=== PATIENT | female | born 1945 | race Caucasian/White ===

== ENCOUNTER 2017-07-03 08:55 | Inpatient (IN) | payer OTHER, MEDICARE ==
[2017-07-03] VITALS (7 sets, daily range): BP systolic 107–165; BP diastolic 60–85; PULSE 66–82; RESP 16–18; TEMP 98.2–99; O2SAT 96–100
[~2017-07-03] VITALS: Ht 144.8 cm; Wt 54.0 kg
[2017-07-03] MEDS ORDERED: BRIM0.2S4 EACH EYE (11:00)
[2017-07-03] MEDS ORDERED: MORPHINE SULFATE 2 MG/ML INJ IV PUSH ONE ×2 (11:00→13:00)
[2017-07-03] MEDS ORDERED: LEVE500T8 PO (11:00)
[2017-07-03] MEDS ORDERED: ATEN25TA PO (11:00)
[2017-07-03] MEDS ORDERED: AMLO10TA2 PO (11:00)
[2017-07-03] MEDS ORDERED: KETOROLAC TROMETHAMINE 30 MG/ML (IVP) VIAL IV PUSH ONE (11:00)
[2017-07-03] MEDS ORDERED: TEMA15CA PO (11:00)
[2017-07-03] MEDS ORDERED: MECL-62 PO (11:00)
[2017-07-03] MEDS ORDERED: RANI1TAB5 PO (11:00)
[2017-07-03] MEDS ORDERED: VENL150C39 PO (11:00)
[2017-07-03 11:22] LABS: AUTOMATED NEUTROPHIL # 7.5 TH/MM3 (1.8-7.7); BASOPHIL % 0.2 % (0.0-2.0); EOSINOPHIL % 0.1 % (0.0-4.0); HEMATOCRIT 39.8 % (35.0-46.0); HEMO FLAGS DIFF FINAL; LYMPH % 17.9 % (9.0-44.0); LYMPHOCYTE # 1.9 TH/MM3 (1.0-4.8); MEAN CELL VOLUME 87.6 FL (80.0-100.0); MEAN CORPUSCULAR HEMOGLOBIN 28.7 PG (27.0-34.0); MEAN CORPUSCULAR HGB CONC 32.7 % (32.0-36.0); MONO % 12.1 % (0.0-8.0); NEUT % 69.7 % (16.0-70.0); PLATELET COUNT 233 TH/MM3 (150-450); RED BLOOD COUNT 4.55 MIL/MM3 (4.00-5.30); RED CELL DISTRIBUTION WIDTH 13.6 % (11.6-17.2); WHITE BLOOD COUNT 10.7 TH/MM3 (4.0-11.0)
[2017-07-03 11:26] LABS: APTT (PATIENT) 27.6 SEC (24.3-30.1); PROTHROMBIN TIME - PATIENT 10.7 SEC (9.8-11.6)
[2017-07-03 11:37] LABS: ALT (GPT) 16 U/L (10-53); ANION GAP 9 MEQ/L (5-15); AST (GOT) 14 U/L (15-37); BICARBONATE 22.8 MEQ/L (21.0-32.0); BLOOD UREA NITROGEN 10 MG/DL (7-18); CHLORIDE 106 MEQ/L (98-107); GLOMERULAR FILTRATION RATE 82 ML/MIN (>89); POTASSIUM 3.4 MEQ/L (3.5-5.1); SODIUM (NA) 138 MEQ/L (136-145)
[2017-07-03 11:40] LABS: ALKALINE PHOSPHATASE 106 U/L (45-117); TOTAL BILIRUBIN ADULT 0.5 MG/DL (0.2-1.0)
--- NOTE | 2017-07-03 11:48 | RADRPT ---
EXAM DATE/TIME: 07/03/2017 11:26 [place] COMPARISON: No previous studies available for comparison. EXTERNAL COMPARISON : [facility], US LEG, LEFT VENOUS DOPPLER June 13, 2017. INDICATIONS : Left leg pain. MEDICAL HISTORY : Hypercholesterolemia. Hypertension. Glaucoma. Seizures. Arthritis. Anemia. Vertigo. SURGICAL HISTORY : Left lung lobectomy. ENCOUNTER: Subsequent ACUITY: 1 month PAIN SCORE: 3/10 LOCATION: Left leg. TECHNIQUE: Venous ultrasound of the leg was performed from the inguinal ligament to the proximal calf. Real-randy e, color Doppler and spectral tracing, compression and augmentation techniques were used. FINDINGS: There is normal compressibility of the deep venous system from the inguinal region to the proximal ca lf. No echogenic clot is seen in the lumen of the common femoral, femoral, popliteal, and posterior tibial veins. There is a normal response of the venous system to proximal and distal augmentation an d respiration. CONCLUSION: No DVT in left leg. Hakeem Robles MD on July 03, 2017 at 11:44 Board Certified Radiologist. This report was verified electronically.
--- NOTE | 2017-07-03 12:22 | RADRPT ---
EXAM DATE/TIME: 07/03/2017 12:16 [place] COMPARISON: No previous studies available for comparison. INDICATIONS : Left knee pain and swelling. Patient woke up and was unable to walk. No prior trauma. MEDICAL HISTORY : Arthritis. Hypercholesterolemia. Hypertension. Anemia. Seizures. SURGICAL HISTORY : Total knee replacement, left. Total knee replacement, right. Left lung lobectomy. ENCOUNTER: Initial ACUITY: 1 day PAIN SCORE: 10/10 LOCATION: Left knee. FINDINGS: Status post total knee arthroplasty. Prosthesis well seated. Modest joint effusion is evident. Fractu re is not appreciated. CONCLUSION: Joint effusion negative for fracture. Jesus Donovan MD FACR on July 03, 2017 at 12:20 Board Certified Radiologist. This report was verified electronically.
[2017-07-03] MEDS ORDERED: LIDOCAINE HCL 1% 50 ML VIAL INFIL ONE (13:00)
[2017-07-03 15:28] LABS: WBC, SYNOVIAL FLUID 41500 /MM3 (0-200)
[2017-07-03] MEDS ORDERED: cefTRIAXone INJ 2,000 MG in SODIUM CHLORIDE 0.9% INJ 100 ML IV ONE (17:15)
[2017-07-03] MEDS ORDERED: VANCOMYCIN INJ 800 MG in SODIUM CHLOR 0.9% 250 ML INJ 250 ML IV SCH (17:15)
--- NOTE | 2017-07-03 17:17 | PD ---
HPI Chief Complaint: Medical Clearance Time Seen by Provider: 10:53 Travel History International Travel<30 days: No Contact w/Intl Traveler<30days: No Traveled to known affect area: No History of Present Illness HPI Patient is a 71 year old female who comes in complaining of left knee pain. She has history of knee replacement and arthritis in that knee, but she says this sever pain started last night. She says it has felt warm and she is unable to deep her knee. She denies fever or chills. She denies injury to the knee. She has not taken any pain medicine. PFSH Past Medical History Anemia: Yes Arthritis: Yes (and oa) Depression: Yes High Cholesterol: Yes Hypertension: Yes Medical other: Yes (vertigo) Seizures: Yes Influenza Vaccination: Yes Past Surgical History Cholecystectomy: Yes Hysterectomy: Yes Other Surgery: Yes (piece of L Lower Lung lobe removed) Social History Alcohol Use: No Tobacco Use: No Substance Use: No Allergies-Medications (Allergen,Severity, Reaction): Coded Allergies: aspirin (Verified Allergy, Intermediate, burning stomach, 07/03/17) Reported Meds & Prescriptions Reported Meds & Active Scripts Active Reported Brimonidine Opth Drops (Brimonidine Tartrate) 0.2% Soln 1 Drop EACH EYE BID Temazepam 15 Mg Cap 15 Mg PO HS PRN Amlodipine (Amlodipine Besylate) 10 Mg Tab 10 Mg PO DAILY Venlafaxine ER 24 HR (Venlafaxine HCl) 150 Mg Cap 150 Mg PO DAILY Meclizine (Meclizine HCl) 25 Mg Tab 25 Mg PO DIRECTED PRN Atenolol 25 Mg Tab 25 Mg PO DAILY Levetiracetam 500 Mg Tab 500 Mg PO BID Ranitidine 75 (Ranitidine HCl) 75 Mg Tab 150 Mg PO BID Take 30 to 60 minutes before eating food or drinking beverages that cause heartburn. Review of Systems Except as stated in HPI: all other systems reviewed are Neg General / Constitutional: No: Fever, Chills HENT: No: Headaches, Lightheadedness Cardiovascular: No: Chest Pain or Discomfort Respiratory: No: Shortness of Breath Gastrointestinal: No: Nausea, Vomiting Musculoskeletal: Positive: Limited ROM, Pain Skin: No Rash, No Change in Pigmentation Neurologic: No: Weakness, Dizziness Physical Exam Narrative GENERAL: Awake and alert, in no acute distress. SKIN: Focused skin assessment warm/dry. HEAD: Atraumatic. Normocephalic. EYES: Pupils equal and round. No scleral icterus. ENT: Mucous membranes pink and moist. NECK: Trachea midline. No JVD. CARDIOVASCULAR: Regular rate and rhythm. No murmur appreciated. RESPIRATORY: No accessory muscle use. Clear to auscultation. Breath sounds equal bilaterally. GASTROINTESTINAL: Abdomen soft, non-tender, nondistended. MUSCULOSKELETAL: No obvious deformities. No clubbing. No cyanosis. Swelling and warmth to the left knee. Unable to flex the knee secondary to pain. Pedal pulses intact. NEUROLOGICAL: Awake and alert. No obvious cranial nerve deficits. Motor grossly within normal limits. Normal speech. PSYCHIATRIC: Appropriate mood and affect; insight and judgment normal. Data Data Last Documented VS Vital Signs Date Time Temp Pulse Resp B/P (MAP) Pulse Ox O2 Delivery O2 Flow Rate FiO2 07/03/17 17:56 17 07/03/17 17:52 75 165/85 (111) 100 Room Air 07/03/17 10:52 99.0 Orders Orders Iv Access Insert/Monitor (07/03/17 10:54) Complete Blood Count With Diff (07/03/17 10:54) Comprehensive Metabolic Panel (07/03/17 10:54) Act Partial Throm Time (Ptt) (07/03/17 10:54) Prothrombin Time / Inr (Pt) (07/03/17 10:54) Westergren Sedimentation Rate (07/03/17 10:54) Knee, Complete (4vws) (07/03/17 ) Us Leg Venous Doppler (07/03/17 ) Morphine Inj (Morphine Inj) (07/03/17 11:00) Ketorolac Inj (Toradol Inj) (07/03/17 11:00) Morphine Inj (Morphine Inj) (07/03/17 13:00) Lidocaine 1% Inj (50 Ml) (Xylocaine 1% I (07/03/17 13:00) Synovial Fl Cell Count + Diff (07/03/17 13:00) Synovial Fluid Crystals (07/03/17 13:00) Fluid Culture And Gram Stain (07/03/17 13:00) Ceftriaxone Inj (Rocephin Inj) (07/03/17 17:15) Vancomycin Inj (Vancomycin Inj) (07/03/17 17:15) Admit Order (Ed Use Only) (07/03/17 ) Labs Laboratory Tests Test 07/03/17 11:00 07/03/17 13:50 White Blood Count 10.7 TH/MM3 Red Blood Count 4.55 MIL/MM3 Hemoglobin 13.0 GM/DL Hematocrit 39.8 % Mean Corpuscular Volume 87.6 FL Mean Corpuscular Hemoglobin 28.7 PG Mean Corpuscular Hemoglobin Concent 32.7 % Red Cell Distribution Width 13.6 % Platelet Count 233 TH/MM3 Mean Platelet Volume 9.1 FL Neutrophils (%) (Auto) 69.7 % Lymphocytes (%) (Auto) 17.9 % Monocytes (%) (Auto) 12.1 % Eosinophils (%) (Auto) 0.1 % Basophils (%) (Auto) 0.2 % Neutrophils # (Auto) 7.5 TH/MM3 Lymphocytes # (Auto) 1.9 TH/MM3 Monocytes # (Auto) 1.3 TH/MM3 Eosinophils # (Auto) 0.0 TH/MM3 Basophils # (Auto) 0.0 TH/MM3 CBC Comment DIFF FINAL Differential Comment Erythrocyte Sedimentation Rate 38 mm/hr Prothrombin Time 10.7 SEC Prothromb Time International Ratio 1.0 RATIO Activated Partial Thromboplast Time 27.6 SEC Blood Urea Nitrogen 10 MG/DL Creatinine 0.70 MG/DL Random Glucose 86 MG/DL Total Protein 7.3 GM/DL Albumin 3.6 GM/DL Calcium Level 9.5 MG/DL Alkaline Phosphatase 106 U/L Aspartate Amino Transf (AST/SGOT) 14 U/L Alanine Aminotransferase (ALT/SGPT) 16 U/L Total Bilirubin 0.5 MG/DL Sodium Level 138 MEQ/L Potassium Level 3.4 MEQ/L Chloride Level 106 MEQ/L Carbon Dioxide Level 22.8 MEQ/L Anion Gap 9 MEQ/L Estimat Glomerular Filtration Rate 82 ML/MIN Synovial Fluid Color RED Synovial Fluid Appearance MARKED Synovial Fluid WBC 78317 /MM3 Synovial Fluid RBC 48020 /MM3 Synovial Fluid Neutrophils 92 % Synovial Fluid Lymphocytes 7 % Synovial Fluid Monocytes 1 % Synovial Fluid Crystals NONE MDM Medical Decision Making Medical Screen Exam Complete: Yes Emergency Medical Condition: Yes Medical Record Reviewed: Yes Differential Diagnosis Septic joint versus arthritis versus DVT Narrative Course Patient is a 71-year-old female who comes in complaining of left knee pain. Exam shows warmth and pain to the knee. IV established, labs sent. Labs show an ESR of 38. X-ray shows effusion. Patient is given pain medicine. Doppler ultrasound reveals no evidence of DVT. Arthrocentesis performed and synovial fluid obtained. Shows a white blood cell count of 41,500. I spoke with Dr. Koch of orthopedics who will consult on the patient. She suggests IV antibiotics for now and observation to see if the Gram stain grows out any bacteria. Patient will be admitted to medicine for further management. Procedures Procedure Narrative Patient consented for arthrocentesis of her left knee. She was sterilely draped , Betadine used to clean the area. 1% lidocaine was injected into the joint space. Synovial fluid was aspirated. This was sent for cell count as well as Gram stain and culture. Patient tolerated the procedure well. There is no, medications. Diagnosis Primary Impression: Septic arthritis Qualified Codes: M00.9 - Pyogenic arthritis, unspecified Admitting Information Admitting Physician Requests: Admit Ally Astorga MD Jul 03, 2017 17:17
[2017-07-03] MEDS ORDERED: SODIUM CHLORIDE 0.9% FLUSH 10 ML FLUSH IV FLUSH PRN (18:30)
[2017-07-03] MEDS ORDERED: ACETAMINOPHEN/HYDROcodone 325 MG/5 MG TAB PO PRN (18:30)
[2017-07-03] MEDS ORDERED: NALOXONE HCL 0.4 MG/ML AMP IV PUSH PRN (18:30)
[2017-07-03] MEDS ORDERED: MAGNESIUM HYDROXIDE SUSP 30 ML CUP PO PRN (18:30)
[2017-07-03] MEDS ORDERED: ONDANSETRON HCL 4 MG/2 ML VIAL IVP PRN (18:30)
[2017-07-03] MEDS ORDERED: Vancomycin Consult Pharmacy 1 EA OTHER SCH (18:45)
--- NOTE | 2017-07-03 19:27 | PD.CONS ---
HPI Service Orthopedic Surgeons Consult Requested By Reason for Consult Left knee swelling and pain Primary Care Physician Unknown Admission Diagnosis Possible septic joint Diagnoses: Chief Complaint: Left knee pain and swelling History of Present Illness 71yo F with history of L TKA and subsequent revision TKA in [place] who reports chronic knee pain since surgery with recent increase in knee pain and swelling over the last 2-3 days. Denies fevers, chills, or recent illnesses. No erythema. No numbness, tingling, or weakness. Reports isolated knee pain and swelling. Denies trauma. Review of Systems Constitutional: DENIES: Fever Endocrine: DENIES: Polyuria Eyes: DENIES: Blurred vision, Diplopia Ears, nose, mouth, throat: DENIES: Running Nose Respiratory: DENIES: Cough Cardiovascular: DENIES: Chest pain Gastrointestinal: DENIES: Abdominal pain Genitourinary: DENIES: Urinary frequency Musculoskeletal: COMPLAINS OF: Joint pain, Joint Swelling Integumentary: DENIES: Rash Hematologic/lymphatic: DENIES: Bruising Immunologic/allergic: DENIES: Eczema Neurologic: DENIES: Abnormal gait Psychiatric: DENIES: Anxiety Past Family Social History Past Medical History Htn, hyperlipidemia, seizures Past Surgical History Bilateral TKA with revision left TKA Allergies: Coded Allergies: aspirin (Verified Allergy, Intermediate, burning stomach, 07/03/17) Active Ordered Medications Current Medications Medications (Trade) Dose Ordered Sig/Lisa Route Start Time Stop Time Status Last Admin Vancomycin HCl 800 mg/Sodium Chloride 258 ml @ 250 mls/hr Q12H IV 07/03/17 17:15 07/03/17 18:33 (NS Flush) 2 ml UNSCH PRN IV FLUSH 07/03/17 18:30 UNV (NS Flush) 2 ml BID IV FLUSH 07/03/17 21:00 UNV (Zofran Inj) 4 mg Q6H PRN IVP 07/03/17 18:30 UNV (Lovenox Inj) 40 mg Q24H SQ 07/03/17 18:30 UNV ([place] 5-325 Mg) 1 tab Q4H PRN PO 07/03/17 18:30 UNV ([place] 10-325 Mg) 1 tab Q4H PRN PO 07/03/17 18:30 UNV (Narcan Inj) 0.4 mg UNSCH PRN IV PUSH 07/03/17 18:30 UNV (Tonie-Colace) 1 tab BID PO 07/03/17 21:00 UNV (Milk Of Magnesia Liq) 30 ml Q12H PRN PO 07/03/17 18:30 UNV Pharmacy Profile Note 0 ml @ 0 mls/hr UNSCH OTHER 07/03/17 18:45 UNV Vancomycin HCl 1000 mg/Sodium Chloride 250 ml @ 250 mls/hr Q12H IV 07/04/17 06:00 UNV Ceftriaxone Sodium 1000 mg/ Sodium Chloride 100 ml @ 200 mls/hr Q24H IV 07/04/17 18:00 UNV (Lactinex) 1 tab TID PO 07/04/17 09:00 UNV Reported Meds & Active Scripts Active Reported Brimonidine Opth Drops (Brimonidine Tartrate) 0.2% Soln 1 Drop EACH EYE BID Temazepam 15 Mg Cap 15 Mg PO HS PRN Amlodipine (Amlodipine Besylate) 10 Mg Tab 10 Mg PO DAILY Venlafaxine ER 24 HR (Venlafaxine HCl) 150 Mg Cap 150 Mg PO DAILY Meclizine (Meclizine HCl) 25 Mg Tab 25 Mg PO DIRECTED PRN Atenolol 25 Mg Tab 25 Mg PO DAILY Levetiracetam 500 Mg Tab 500 Mg PO BID Ranitidine 75 (Ranitidine HCl) 75 Mg Tab 150 Mg PO BID Take 30 to 60 minutes before eating food or drinking beverages that cause heartburn. Family History Denies cardiac history Social History Denies tobacco and alcohol Physical Exam Vital Signs Vital Signs Date Time Temp Pulse Resp B/P (MAP) Pulse Ox O2 Delivery O2 Flow Rate FiO2 07/03/17 17:56 17 07/03/17 17:52 75 18 165/85 (111) 100 Room Air 07/03/17 16:59 68 18 107/60 (76) 97 Room Air 07/03/17 14:43 17 07/03/17 12:51 66 17 130/60 (83) 99 Room Air 07/03/17 11:22 17 07/03/17 10:52 99.0 07/03/17 10:50 82 16 157/69 (98) 100 Physical Exam Awake, alert NAD Normocephalic Pupils equal Moist mucous membranes Non-labored respirations No JVD Regular rate Soft abdomen LLE: swelling with TTP about knee. No erythema. Prior surgical incision well healed. No instability on exam. Allows 0-90 degrees ROM of mild to moderate discomfort. +EHL/FHL, +DF/PF. Sensation intact. DP palpable. BUE and RLE: without swelling, TTP or deformities. Full active ROM and strength. Sensation intact. Radial and DP palpable. Normal affect Laboratory Laboratory Tests Test 07/03/17 11:00 07/03/17 13:50 White Blood Count 10.7 Red Blood Count 4.55 Hemoglobin 13.0 Hematocrit 39.8 Mean Corpuscular Volume 87.6 Mean Corpuscular Hemoglobin 28.7 Mean Corpuscular Hemoglobin Concent 32.7 Red Cell Distribution Width 13.6 Platelet Count 233 Mean Platelet Volume 9.1 Neutrophils (%) (Auto) 69.7 Lymphocytes (%) (Auto) 17.9 Monocytes (%) (Auto) 12.1 Eosinophils (%) (Auto) 0.1 Basophils (%) (Auto) 0.2 Neutrophils # (Auto) 7.5 Lymphocytes # (Auto) 1.9 Monocytes # (Auto) 1.3 Eosinophils # (Auto) 0.0 Basophils # (Auto) 0.0 CBC Comment DIFF FINAL Differential Comment Erythrocyte Sedimentation Rate 38 Prothrombin Time 10.7 Prothromb Time International Ratio 1.0 Activated Partial Thromboplast Time 27.6 Blood Urea Nitrogen 10 Creatinine 0.70 Random Glucose 86 Total Protein 7.3 Albumin 3.6 Calcium Level 9.5 Alkaline Phosphatase 106 Aspartate Amino Transf (AST/SGOT) 14 Alanine Aminotransferase (ALT/SGPT) 16 Total Bilirubin 0.5 Sodium Level 138 Potassium Level 3.4 Chloride Level 106 Carbon Dioxide Level 22.8 Anion Gap 9 Estimat Glomerular Filtration Rate 82 Synovial Fluid Color RED Synovial Fluid Appearance MARKED Synovial Fluid WBC 18967 Synovial Fluid RBC 32151 Synovial Fluid Neutrophils 92 Synovial Fluid Lymphocytes 7 Synovial Fluid Monocytes 1 Synovial Fluid Crystals NONE Date/Time Source Procedure Growth Status 07/03/17 13:50 Fluid Synovial Fluid Gram Stain Pending Received 07/03/17 13:50 Fluid Synovial Fluid Body Fluid Culture Pending Received Result Diagram: 07/03/17 1100 07/03/17 1100 Imaging L knee XR: with prior TKA in place without clear evidence of loosening or osteolysis. No fractures Assessment & Plan Assessment and Plan Left knee swelling and pain, concern for infection after TKA 1. Arthrocentesis has already been performed by the ED. At this time, elevated WBCs but awaiting cultures. Given fluid has already been obtained, would recommend IV antibiotics at this time. Discussed with patient my concern for possible infection about her TKA. This is much more complex than a septic arthritis in a [place] joint. I did explain that at 3 years from last surgery, we often have to resect or at least perform a polyethylene exchange at the time of washout. With this in mind, I would recommend waiting for cultures to return before going to OR. 2. Medicine to admit and optimize should surgery be necessary. Patient may require I&D with poly exchange versus complete resection with antibiotic spacer placement. Will follow cultures and discuss with patient. 3. NPO at midnight in case surgery does need to be done tomorrow. Mariana Koch MD Jul 03, 2017 19:27
[2017-07-03] MEDS: SODIUM CHLORIDE 0.9% FLUSH 10 ML FLUSH IV FLUSH SCH (21:00)
[2017-07-03] MEDS ORDERED: PHARMACY ORDERED LAB ONE (21:00)
[2017-07-03] MEDS: DOCUSATE SODIUM 50 MG/SENNA 8.6 MG TAB PO SCH (22:25)
[2017-07-03] MEDS: ENOXAPARIN SODIUM 40 MG/0.4 ML SYRINGE SQ SCH (22:25)
[2017-07-03] MEDS: ACETAMINOPHEN/HYDROcodone 325 MG/10 MG TAB PO PRN (22:26)
[2017-07-04] VITALS (7 sets, daily range): BP systolic 120–159; BP diastolic 56–75; PULSE 73–87; RESP 16–18; TEMP 98–99; O2SAT 96–99
--- NOTE | 2017-07-04 05:24 | HHI.HP ---
[facility] Admission Diagnosis Possible septic joint Diagnoses: Travel History International Travel<30 Days: No Contact w/Intl Traveler <30 Da: No Traveled to Known Affected Are: No History of Present Illness pain and swelling in left knee started yesterday no fever had warmth over it no falls had chronic pain on left knee arthritis left knee replacement 2x - last time 3 yrs ago Reports of prior history of recurrent left knee swelling on almost daily basis. not diabetic no cardiovascular issues in ER was tapped started on iv vanco and rocephin had diarrhea monday and monday- whole day long vomited one time on monday no black or red color stool no blood in urine Review of Systems Except as stated in HPI: all other systems reviewed are Neg Past Family Social History Past Medical History htn seizure hyperlipidemia Past Surgical History hysterectomy cholecystectomy bilateral knee replacement left breast cyst removal left lower lung resection Allergies: Coded Allergies: aspirin (Verified Allergy, Intermediate, burning stomach, 07/03/17) Family History father- of [place] mother- dementia alzeimers type Social History denies smoking ever in her life but was exposed to second hand no etoh abuse or drug abuse Physical Exam Vital Signs Vital Signs Date Time Temp Pulse Resp B/P (MAP) Pulse Ox O2 Delivery O2 Flow Rate FiO2 07/04/17 03:40 98.0 81 18 150/72 (98) 98 07/04/17 00:26 98.1 87 18 148/69 (95) 96 07/03/17 20:21 98.2 67 18 132/63 (86) 96 07/03/17 19:42 154/66 (95) 97 07/03/17 17:56 17 07/03/17 17:52 75 18 165/85 (111) 100 Room Air 07/03/17 16:59 68 18 107/60 (76) 97 Room Air 07/03/17 14:43 17 07/03/17 12:51 66 17 130/60 (83) 99 Room Air 07/03/17 11:22 17 07/03/17 10:52 99.0 07/03/17 10:50 82 16 157/69 (98) 100 Physical Exam GENERAL: This is a well-nourished, well-developed patient, in no apparent distress. SKIN: No rashes, ecchymoses or lesions. Cool and dry. HEAD: Atraumatic. Normocephalic. No temporal or scalp tenderness. EYES: Pupils equal round and reactive. Extraocular motions intact. No scleral icterus. No injection or drainage. ENT: Nose without bleeding, purulent drainage or septal hematoma. Throat without erythema, tonsillar hypertrophy or exudate. Uvula midline. Airway patent. NECK: Trachea midline. No JVD or lymphadenopathy. Supple, nontender, no meningeal signs. CARDIOVASCULAR: Regular rate and rhythm without murmurs, gallops, or rubs. RESPIRATORY: Clear to auscultation. Breath sounds equal bilaterally. No wheezes , rales, or rhonchi. GASTROINTESTINAL: Abdomen soft, non-tender, nondistended. No hepato-splenomegaly , or palpable masses. No guarding. MUSCULOSKELETAL: Extremities without clubbing, cyanosis, or edema. No joint tenderness, effusion, or edema noted. No calf tenderness. Negative Homans sign bilaterally. NEUROLOGICAL: Awake and alert. Cranial nerves II through XII intact. Motor and sensory grossly within normal limits. Five out of 5 muscle strength in all muscle groups. Normal speech. Laboratory Laboratory Tests Test 07/03/17 11:00 07/03/17 13:50 White Blood Count 10.7 Red Blood Count 4.55 Hemoglobin 13.0 Hematocrit 39.8 Mean Corpuscular Volume 87.6 Mean Corpuscular Hemoglobin 28.7 Mean Corpuscular Hemoglobin Concent 32.7 Red Cell Distribution Width 13.6 Platelet Count 233 Mean Platelet Volume 9.1 Neutrophils (%) (Auto) 69.7 Lymphocytes (%) (Auto) 17.9 Monocytes (%) (Auto) 12.1 Eosinophils (%) (Auto) 0.1 Basophils (%) (Auto) 0.2 Neutrophils # (Auto) 7.5 Lymphocytes # (Auto) 1.9 Monocytes # (Auto) 1.3 Eosinophils # (Auto) 0.0 Basophils # (Auto) 0.0 CBC Comment DIFF FINAL Differential Comment Erythrocyte Sedimentation Rate 38 Prothrombin Time 10.7 Prothromb Time International Ratio 1.0 Activated Partial Thromboplast Time 27.6 Blood Urea Nitrogen 10 Creatinine 0.70 Random Glucose 86 Total Protein 7.3 Albumin 3.6 Calcium Level 9.5 Alkaline Phosphatase 106 Aspartate Amino Transf (AST/SGOT) 14 Alanine Aminotransferase (ALT/SGPT) 16 Total Bilirubin 0.5 Sodium Level 138 Potassium Level 3.4 Chloride Level 106 Carbon Dioxide Level 22.8 Anion Gap 9 Estimat Glomerular Filtration Rate 82 Synovial Fluid Color RED Synovial Fluid Appearance MARKED Synovial Fluid WBC 05441 Synovial Fluid RBC 16613 Synovial Fluid Neutrophils 92 Synovial Fluid Lymphocytes 7 Synovial Fluid Monocytes 1 Synovial Fluid Crystals NONE Date/Time Source Procedure Growth Status 07/03/17 13:50 Fluid Synovial Fluid Gram Stain Pending Received 07/03/17 13:50 Fluid Synovial Fluid Body Fluid Culture Pending Received Result Diagram: 07/03/17 1100 07/03/17 1100 Caprini VTE Risk Assessment Caprini Risk Assessment Model Point Value = 1 Point Value = 2 Point Value = 3 Point Value = 5 Age 41-60 Minor surgery BMI > 25 kg/m2 Swollen legs Varicose veins or History of unexplained or recurrent spontaneous Oral contraceptives or hormone replacement Sepsis (< 1 month) Serious lung disease, including pneumonia (< 1 month) Abnormal pulmonary function Acute myocardial infarction Congestive heart failure (< 1 month) History of inflammatory bowel disease Medical patient at bed rest Age 61-74 Arthroscopic surgery Major open surgery (> 45 min) Laparoscopic surgery (> 45 min) Malignancy Confined to bed (> 72 hours) Immobilizing plaster cast Central venous access Age >= 75 History of VTE Family history of VTE Factor V Leiden Prothrombin [id number] Lupus anticoagulant Anticardiolipin antibodies Elevated serum homocysteine Heparin-induced thrombocytopenia Other congenital or acquired thrombophilia Stroke (< 1 month) Elective arthroplasty Hip, pelvis, or leg fracture Acute spinal cord injury (< 1 month) Prophylaxis Regimen Total Risk Factor Score Risk Level Prophylaxis Regimen 0-1 Low Early ambulation 2 Moderate Order ONE of the following: *Sequential Compression Device (SCD) *Heparin 5000 units SQ BID 3-4 Higher Order ONE of the following medications: *Heparin 5000 units SQ TID *Enoxaparin/Lovenox 40 mg SQ daily (WT < 150 kg, CrCl > 30 mL/min) *Enoxaparin/Lovenox 30 mg SQ daily (WT < 150 kg, CrCl > 10-29 mL/min) *Enoxaparin/Lovenox 30 mg SQ BID (WT < 150 kg, CrCl > 30 mL/min) AND/OR *Sequential Compression Device (SCD) 5 or more Highest Order ONE of the following medications: *Heparin 5000 units SQ TID (Preferred with Epidurals) *Enoxaparin/Lovenox 40 mg SQ daily (WT < 150 kg, CrCl > 30 mL/min) *Enoxaparin/Lovenox 30 mg SQ daily (WT < 150 kg, CrCl > 10-29 mL/min) *Enoxaparin/Lovenox 30 mg SQ BID (WT < 150 kg, CrCl > 30 mL/min) AND *Sequential Compression Device (SCD) Assessment and Plan Assessment and Plan Impression: Left knee joint effusion: Likely secondary to septic arthritis. History of left knee replacement 2 with the latest being 3 years ago. htn seizure hyperlipidemia Plan: Patient had left knee arthrosis indices done in the emergency room. Joint fluid studies reviewed. Partly traumatic fluid Will follow fluid culture results. Until then, would continue antibiotics with IV vancomycin and Rocephin. Not suspecting pseudomonas infection as patient is not an IV drug abuser, not diabetic. Therefore would continue same antibiotics regimen. Patient was evaluated by orthopedic surgeon. Notes reviewed. Nothing by mouth in case patient needs surgery. However otherwise recommended for antibiotics to be continued, and possible I+D with poorly exchange versus complete resection with antibiotic spacer placement given that patient's joint had knee replacement previously. DVT prophylaxis with SCD. Chemical prophylaxis to start if no OR/surgical intervention. Discussed Condition With Patient, nursing staff Bebo Arroyo MD Jul 04, 2017 05:24
[2017-07-04] MEDS ORDERED: FAMOTIDINE 20 MG TAB PO ONE (05:30)
[2017-07-04] MEDS ORDERED: MECLIZINE HCL 25 MG TAB PO PRN (05:30)
[2017-07-04] MEDS ORDERED: VANCOMYCIN INJ 1,000 MG in SODIUM CHLOR 0.9% 250 ML INJ 250 ML IV SCH (06:00)
[2017-07-04 09:05] LABS: AUTOMATED NEUTROPHIL # 6.6 TH/MM3 (1.8-7.7); BASOPHIL % 0.1 % (0.0-2.0); HEMATOCRIT 36.7 % (35.0-46.0); HEMO FLAGS DIFF FINAL; LYMPH % 10.7 % (9.0-44.0); LYMPHOCYTE # 0.9 TH/MM3 (1.0-4.8); MEAN CELL VOLUME 87.5 FL (80.0-100.0); MEAN CORPUSCULAR HEMOGLOBIN 28.7 PG (27.0-34.0); MEAN CORPUSCULAR HGB CONC 32.7 % (32.0-36.0); MONO % 7.6 % (0.0-8.0); NEUT % 81.6 % (16.0-70.0); PLATELET COUNT 218 TH/MM3 (150-450); RED BLOOD COUNT 4.19 MIL/MM3 (4.00-5.30); RED CELL DISTRIBUTION WIDTH 13.3 % (11.6-17.2); WHITE BLOOD COUNT 8.1 TH/MM3 (4.0-11.0)
[2017-07-04] MEDS: LACTOBACILLUS ACIDOPHILUS TAB PO SCH ×3 (09:17→19:54)
[2017-07-04] MEDS: VENLAFAXINE HCL XR 75 MG CAP PO SCH (09:20)
[2017-07-04] MEDS: ATENOLOL 25 MG TAB PO SCH (09:20)
[2017-07-04] MEDS: FAMOTIDINE 20 MG TAB PO SCH ×2 (09:21→22:08)
[2017-07-04] MEDS: DOCUSATE SODIUM 50 MG/SENNA 8.6 MG TAB PO SCH ×2 (09:21→22:07)
[2017-07-04] MEDS: levETIRAcetam 500 MG TAB PO SCH ×2 (09:22→22:07)
[2017-07-04] MEDS: BRIMONIDINE TARTRATE 0.2% OPHT SOLN 5 ML BTL EACH EYE SCH ×2 (09:23→22:09)
[2017-07-04] MEDS: SODIUM CHLORIDE 0.9% FLUSH 10 ML FLUSH IV FLUSH SCH ×2 (09:24→22:10)
[2017-07-04 09:27] LABS: ANION GAP 12 MEQ/L (5-15); AST (GOT) 78 U/L (15-37); BICARBONATE 20.2 MEQ/L (21.0-32.0); BLOOD UREA NITROGEN 15 MG/DL (7-18); CHLORIDE 106 MEQ/L (98-107); GLOMERULAR FILTRATION RATE 93 ML/MIN (>89); POTASSIUM 3.9 MEQ/L (3.5-5.1); SODIUM (NA) 138 MEQ/L (136-145)
[2017-07-04 09:41] LABS: ALKALINE PHOSPHATASE 183 U/L (45-117); ALT (GPT) 78 U/L (10-53); TOTAL BILIRUBIN ADULT 0.4 MG/DL (0.2-1.0)
--- NOTE | 2017-07-04 09:46 | PD.ORT.PN ---
Subjective Subjective Remarks Patient resting comfortably today. Still with left knee pain and swelling. Denies fevers, chills, N/V Objective Vitals Vital Signs Date Time Temp Pulse Resp B/P (MAP) Pulse Ox O2 Delivery O2 Flow Rate FiO2 07/04/17 08:00 98.2 73 16 136/64 (88) 99 07/04/17 03:40 98.0 81 18 150/72 (98) 98 07/04/17 00:26 98.1 87 18 148/69 (95) 96 07/03/17 20:21 98.2 67 18 132/63 (86) 96 07/03/17 19:42 154/66 (95) 97 07/03/17 17:56 17 07/03/17 17:52 75 18 165/85 (111) 100 Room Air 07/03/17 16:59 68 18 107/60 (76) 97 Room Air 07/03/17 14:43 17 07/03/17 12:51 66 17 130/60 (83) 99 Room Air 07/03/17 11:22 17 07/03/17 10:52 99.0 07/03/17 10:50 82 16 157/69 (98) 100 I/O 07/03/17 07/03/17 07/03/17 07/04/17 07/04/17 07/04/17 06:59 14:59 22:59 06:59 14:59 22:59 Intake Total 100 ml Balance 100 ml Intake IV Total 100 ml Result Diagram: 07/04/17 0735 07/04/17 0735 Other Results Laboratory Tests Test 07/03/17 11:00 Prothromb Time International Ratio 1.0 RATIO Prothrombin Time 10.7 SEC (9.8-11.6) Objective Remarks Awake, alert, NAD LLE: swelling and warmth about the knee. No significant erythema. No draining wounds. Prior surgical incision well healed. NVI distally Assessment & Plan Assessment and Plan Left knee swelling and pain, concern for infection after TKA 1. Discussed with patient that given the WBC count in the aspiration and her TKA , I would be concerned for infection. However, with a TKA in place, she would require at minimum and I&D and polyethylene exchange. With this in mind, we need to request her surgical records from [place] to know which TKA prosthesis she has in place. I explained the other option would be a complete removal of her prosthesis with antibiotic cement spacer, however, I would prefer to attempt an I&D and polyethylene exchange and a course of IV antibiotics prior to that. Should she fail this, then she would likely require a total explant with spacer. 2. Continue antibiotics 3. Will follow cultures 4. Plan for likely OR tomorrow for I&D and poly swap. Will need records to know which prothesis is in place. 5. NPO at midnight Mariana Koch MD Jul 04, 2017 09:46
--- NOTE | 2017-07-04 09:53 | HHI.PR ---
Subjective Remarks Follow up for left knee pain/swelling. The patient reports mild improvement of her left knee swelling however still painful. Pain temporarily relieved by norco. Denies any fevers/chills. Seen by orthopedics today, plan for OR tomorrow. The patient has no other medical complaints at this time. Denies any chest pain, palpitations, shortness of breath, or abdominal complaints. Objective Vitals Vital Signs Date Time Temp Pulse Resp B/P (MAP) Pulse Ox O2 Delivery O2 Flow Rate FiO2 07/04/17 08:00 98.2 73 16 136/64 (88) 99 07/04/17 03:40 98.0 81 18 150/72 (98) 98 07/04/17 00:26 98.1 87 18 148/69 (95) 96 07/03/17 20:21 98.2 67 18 132/63 (86) 96 07/03/17 19:42 154/66 (95) 97 07/03/17 17:56 17 07/03/17 17:52 75 18 165/85 (111) 100 Room Air 07/03/17 16:59 68 18 107/60 (76) 97 Room Air 07/03/17 14:43 17 07/03/17 12:51 66 17 130/60 (83) 99 Room Air 07/03/17 11:22 17 07/03/17 10:52 99.0 07/03/17 10:50 82 16 157/69 (98) 100 I/O 07/03/17 07/03/17 07/03/17 07/04/17 07/04/17 07/04/17 06:59 14:59 22:59 06:59 14:59 22:59 Intake Total 100 ml Balance 100 ml Intake IV Total 100 ml Result Diagram: 07/04/17 0735 07/04/17 0735 Imaging Last Impressions Lower Extremity Ultrasound 07/03/17 0000 Signed Impressions: Service Date/Time: Monday, July 03, 2017 11:26 - CONCLUSION: No DVT in left leg. Hakeem Robles MD Knee X-Ray 07/03/17 0000 Signed Impressions: Service Date/Time: Monday, July 03, 2017 12:16 - CONCLUSION: Joint effusion negative for fracture. Jesus Donovan MD FACR Objective Remarks GENERAL: Well-nourished, well-developed pleasant elderly female patient in [facility]. SKIN: Warm and dry. No rash. HEENT: Normocephalic. Atraumatic.Pupils equal and round. Mucous membranes pink and moist. CARDIOVASCULAR: Regular rate and rhythm. S1, S2 noted. No murmur appreciated. RESPIRATORY: No accessory muscle use. Clear to auscultation. Breath sounds equal bilaterally. GASTROINTESTINAL: Abdomen soft, non-tender, nondistended. Normoactive bowel sounds x4. MUSCULOSKELETAL: No obvious deformities. Left knee edematous, warm, TTP, no overlying erythema, no open wound, old surgical incision well healed. ROM to 90deg exacerbates pain. NEUROLOGICAL: Awake and alert. No obvious cranial nerve deficits. Motor grossly within normal limits. Normal speech. PSYCHIATRIC: Appropriate mood and affect; insight and judgment normal. Medications and IVs Current Medications Medications (Trade) Dose Ordered Sig/Lisa Route Start Time Stop Time Status Last Admin (NS Flush) 2 ml UNSCH PRN IV FLUSH 07/03/17 18:30 (NS Flush) 2 ml BID IV FLUSH 07/03/17 21:00 07/04/17 09:24 (Zofran Inj) 4 mg Q6H PRN IVP 07/03/17 18:30 (Lovenox Inj) 40 mg Q24H SQ 07/03/17 20:00 07/03/17 22:25 (Clermont 5-325 Mg) 1 tab Q4H PRN PO 07/03/17 18:30 ([place] 10-325 Mg) 1 tab Q4H PRN PO 07/03/17 18:30 07/03/17 22:26 (Narcan Inj) 0.4 mg UNSCH PRN IV PUSH 07/03/17 18:30 (Tonie-Colace) 1 tab BID PO 07/03/17 21:00 07/04/17 09:21 (Milk Of Magnesia Liq) 30 ml Q12H PRN PO 07/03/17 18:30 Pharmacy Profile Note 0 ml @ 0 mls/hr UNSCH OTHER 07/03/17 18:45 Ceftriaxone Sodium 1000 mg/ Sodium Chloride 100 ml @ 200 mls/hr Q24H IV 07/04/17 18:00 (Lactinex) 1 tab TID PO 07/04/17 09:00 07/04/17 09:17 Vancomycin HCl 800 mg/Sodium Chloride 258 ml @ 250 mls/hr Q18H IV 07/04/17 12:00 Miscellaneous Information SPECIFIC LAB TO BE DRAWN:VANCO TROUGH DATE TO... ONCE ONCE .XX 07/05/17 23:45 07/05/17 23:46 (Norvasc) 10 mg DAILY PO 07/04/17 09:00 07/04/17 09:23 (Tenormin) 25 mg DAILY PO 07/04/17 09:00 07/04/17 09:20 (Alphagan 0.2% Opth Soln) 1 drop BID EACH EYE 07/04/17 09:00 07/04/17 09:23 (Keppra) 500 mg BID PO 07/04/17 09:00 07/04/17 09:22 (Antivert) 25 mg Q6HR PRN PO 07/04/17 05:30 (Restoril) 15 mg HS PRN PO 07/04/17 05:30 (Effexor Xr) 150 mg DAILY PO 07/04/17 09:00 07/04/17 09:20 (Pepcid) 20 mg BID PO 07/04/17 09:00 07/04/17 09:21 A/P Assessment and Plan 71-year-old female wit history of HTN, HLD, osteoarthritis, presents with left knee pain and swelling x2days Left Knee Pain/Swelling: hx of left TKA and revision, last surgery 3 years ago. Now with 2 days pain/swelling, no recent injury/trauma. Afebrile, no leukocytosis. -S/p Arthrocentesis in the ED, joint fluid studies reviewed, partly traumatic however also with elevated WBCs, awaiting cultures -Continue antibiotics with IV Rocephin and IV Vanco -Consult orthopedics, plan for I&D and possible revision in the OR tomorrow 07/05 -Pain control with Clermont prn and IV morphine prn -Elevate the leg Hypertension: chronic, stable -continue home meds including atenolol 25mg daily, amlodipine 10mg daily -monitor BP, adjust antihypertensives as needed All other medical conditions stable, continue home medications as appropriate. DVT Prophylaxis: teds/SCDs to the nonoperative leg; avoid chemoprophylaxis with upcoming surgery Jesika Ramos PA-C Jul 04, 2017 9:53 am
[2017-07-04] MEDS ORDERED: VANCOMYCIN INJ 800 MG in SODIUM CHLOR 0.9% 250 ML INJ 250 ML IV SCH (12:00)
[2017-07-04] MEDS: VANCOMYCIN 1,000 MG/NS 250 ML IV SCH ×2 (13:34)
[2017-07-04] MEDS: ENOXAPARIN SODIUM 40 MG/0.4 ML SYRINGE SQ SCH (20:00)
[2017-07-04] MEDS: cefTRIAXone INJ 1,000 MG in SODIUM CHLORIDE 0.9% INJ 100 ML IV SCH (20:03)
[2017-07-04] MEDS: TEMAZEPAM 15 MG CAP PO PRN (22:21)
[2017-07-05 03:18] VITALS: BP 123/62; PULSE 66; RESP 16; TEMP 98.4; O2SAT 98
[2017-07-05] MEDS: VANCOMYCIN 1,000 MG/NS 250 ML IV SCH ×2 (05:38)
[2017-07-05] MEDS: ACETAMINOPHEN/HYDROcodone 325 MG/10 MG TAB PO PRN (07:37)
[2017-07-05] MEDS ORDERED: ONDANSETRON HCL 4 MG/2 ML VIAL IV PUSH ONE (07:51)
[2017-07-05] MEDS ORDERED: ROCURONIUM INJ 50 MG/5 ML SYRINGE IV PUSH ONE (07:51)
[2017-07-05] MEDS ORDERED: NEOSTIGMINE 3 MG/3 ML SYR IV ONE (07:51)
[2017-07-05] MEDS ORDERED: PHENYLEPH/NS 1000 MCG/10 ML SYR IV ONE (07:51)
[2017-07-05] MEDS ORDERED: PROPOFOL 200 MG/20 ML AMP IV ONE (07:51)
[2017-07-05] MEDS ORDERED: MORPHINE SULFATE 4 MG/ML INJ IV ONE (07:51)
[2017-07-05] MEDS ORDERED: LABETALOL HCL 100 MG/20 ML VIAL IV ONE (07:51)
[2017-07-05] MEDS ORDERED: GLYCOPYRROLATE 1 MG/5 ML SYRINGE IV PUSH ONE (07:51)
[2017-07-05] MEDS ORDERED: LIDOCAINE HCL 1% PF 5 ML AMPULE OTHER ONE (07:51)
[2017-07-05] MEDS ORDERED: ePHEDrine/NS 25 MG/5 ML SYR IV ONE (07:51)
[2017-07-05] MEDS ORDERED: DEXAMETHASONE SOD PHOS 4 MG/ML VIAL IV ONE (07:51)
[2017-07-05 08:00] VITALS: BP 143/66; PULSE 66; RESP 18; TEMP 98.3; O2SAT 98
--- NOTE | 2017-07-05 08:57 | HHI.PR ---
Subjective Remarks Follow up for left knee pain/swelling. The patient reports continue swelling and pain of the left knee, not much improved compared to yesterday. Still with limited range of motion of the left knee. Denies fevers/chills. Denies any other medical complaints including no chest pain, shortness of breath, or abdominal complaints. Objective Vitals Vital Signs Date Time Temp Pulse Resp B/P (MAP) Pulse Ox O2 Delivery O2 Flow Rate FiO2 07/05/17 08:00 98.3 66 18 143/66 (91) 98 07/05/17 03:18 98.4 66 16 123/62 (82) 98 07/04/17 23:06 98.4 75 17 126/56 (79) 97 07/04/17 19:31 99.0 85 17 159/75 (103) 98 07/04/17 16:00 99.0 76 16 137/67 (90) 98 07/04/17 12:00 98.3 76 16 120/57 (78) 97 I/O 07/04/17 07/04/17 07/04/17 07/05/17 07/05/17 07/05/17 07:00 15:00 23:00 07:00 15:00 23:00 Intake Total 1020 ml 525 ml Balance 1020 ml 525 ml Intake Oral 1020 ml 25 ml IV Total 500 ml # Voids 3 # Bowel Movements 0 Result Diagram: 07/04/17 0735 07/04/17 0735 Imaging Last Impressions Lower Extremity Ultrasound 07/03/17 0000 Signed Impressions: Service Date/Time: Monday, July 03, 2017 11:26 - CONCLUSION: No DVT in left leg. Hakeem Robles MD Knee X-Ray 07/03/17 0000 Signed Impressions: Service Date/Time: Monday, July 03, 2017 12:16 - CONCLUSION: Joint effusion negative for fracture. Jesus Donovan MD FACR Objective Remarks GENERAL: Well-nourished, well-developed pleasant elderly female patient in [facility]. SKIN: Warm and dry. No rash. HEENT: Normocephalic. Atraumatic.Pupils equal and round. Mucous membranes pink and moist. CARDIOVASCULAR: Regular rate and rhythm. S1, S2 noted. No murmur appreciated. RESPIRATORY: No accessory muscle use. Clear to auscultation. Breath sounds equal bilaterally. GASTROINTESTINAL: Abdomen soft, non-tender, nondistended. Normoactive bowel sounds x4. MUSCULOSKELETAL: No obvious deformities. Left knee edematous, slightly warm, TTP at anteromedial aspect, no overlying erythema, no open wound, old surgical incision well healed. ROM to 90deg exacerbates pain. NEUROLOGICAL: Awake and alert. No obvious cranial nerve deficits. Motor grossly within normal limits. Normal speech. PSYCHIATRIC: Appropriate mood and affect; insight and judgment normal. Medications and IVs Current Medications Medications (Trade) Dose Ordered Sig/Lisa Route Start Time Stop Time Status Last Admin (NS Flush) 2 ml UNSCH PRN IV FLUSH 07/03/17 18:30 (NS Flush) 2 ml BID IV FLUSH 07/03/17 21:00 07/04/17 22:10 (Zofran Inj) 4 mg Q6H PRN IVP 07/03/17 18:30 (Lovenox Inj) 40 mg Q24H SQ 07/03/17 20:00 07/03/17 22:25 (Parrott 5-325 Mg) 1 tab Q4H PRN PO 07/03/17 18:30 07/04/17 19:54 (Parrott 10-325 Mg) 1 tab Q4H PRN PO 07/03/17 18:30 07/05/17 07:37 (Narcan Inj) 0.4 mg UNSCH PRN IV PUSH 07/03/17 18:30 (Tonie-Colace) 1 tab BID PO 07/03/17 21:00 07/04/17 22:07 (Milk Of Magnesia Liq) 30 ml Q12H PRN PO 07/03/17 18:30 Pharmacy Profile Note 0 ml @ 0 mls/hr UNSCH OTHER 07/03/17 18:45 Ceftriaxone Sodium 1000 mg/ Sodium Chloride 100 ml @ 200 mls/hr Q24H IV 07/04/17 18:00 07/04/17 20:03 (Lactinex) 1 tab TID PO 07/04/17 09:00 07/04/17 19:54 Miscellaneous Information SPECIFIC LAB TO BE DRAWN:VANCO TROUGH DATE TO... ONCE ONCE .XX 07/05/17 23:45 07/05/17 23:46 (Norvasc) 10 mg DAILY PO 07/04/17 09:00 07/04/17 09:23 (Tenormin) 25 mg DAILY PO 07/04/17 09:00 07/04/17 09:20 (Alphagan 0.2% Opth Soln) 1 drop BID EACH EYE 07/04/17 09:00 07/04/17 22:09 (Keppra) 500 mg BID PO 07/04/17 09:00 07/04/17 22:07 (Antivert) 25 mg Q6HR PRN PO 07/04/17 05:30 (Restoril) 15 mg HS PRN PO 07/04/17 05:30 07/04/17 22:21 (Effexor Xr) 150 mg DAILY PO 07/04/17 09:00 07/04/17 09:20 (Pepcid) 20 mg BID PO 07/04/17 09:00 07/04/17 22:08 Vancomycin HCl 1000 mg/Sodium Chloride 250 ml @ 250 mls/hr Q18H IV 07/04/17 12:00 07/05/17 05:38 A/P Assessment and Plan 71-year-old female with history of HTN, HLD, osteoarthritis, presents with left knee pain and swelling x2days Left Knee Pain/Swelling: hx of left TKA and revision, last surgery 3 years ago. Now with 2 days pain/swelling, no recent injury/trauma. Afebrile, no leukocytosis. -S/p Arthrocentesis in the ED, joint fluid studies reviewed, partly traumatic however also with elevated WBCs, culture with NGTD -Continue antibiotics with IV Rocephin and IV Vanco -Consult orthopedics, plan for I&D and possible revision in the OR today -Pain control with Parrott prn and IV morphine prn -Elevate the leg Hypertension: chronic, stable -continue home meds including atenolol 25mg daily, amlodipine 10mg daily -monitor BP, adjust antihypertensives as needed All other medical conditions stable, continue home medications as appropriate. DVT Prophylaxis: teds/SCDs to the nonoperative leg; avoid chemoprophylaxis with upcoming surgery Discharge Planning Going to OR today. Further disposition per ortho. Jesika Ramos PA-C Jul 05, 2017 8:57 am
[2017-07-05] MEDS: VENLAFAXINE HCL XR 75 MG CAP PO SCH (09:55)
[2017-07-05] MEDS: BRIMONIDINE TARTRATE 0.2% OPHT SOLN 5 ML BTL EACH EYE SCH ×2 (09:55→21:00)
[2017-07-05] MEDS: levETIRAcetam 500 MG TAB PO SCH (09:56)
[2017-07-05] MEDS: ATENOLOL 25 MG TAB PO SCH (09:56)
[2017-07-05] MEDS: LACTOBACILLUS ACIDOPHILUS TAB PO SCH ×2 (09:56→13:00)
[2017-07-05] MEDS: DOCUSATE SODIUM 50 MG/SENNA 8.6 MG TAB PO SCH ×2 (09:56→21:00)
[2017-07-05] MEDS: FAMOTIDINE 20 MG TAB PO SCH ×2 (09:56→21:00)
[2017-07-05] MEDS: SODIUM CHLORIDE 0.9% FLUSH 10 ML FLUSH IV FLUSH SCH (09:58)
[2017-07-05 11:31] VITALS: BP 139/63; PULSE 60; RESP 16; TEMP 97.7; O2SAT 98
--- NOTE | 2017-07-05 13:47 | EKG ---
Date Performed: 07/05/2017 Time Performed: 06:10:46 PTAGE: 71 years EKG: Sinus rhythm NORMAL ECG NO PREVIOUS TRACING DOCTOR: Betito Horn Interpretating Date/Time 07/05/2017 13:42:49
[2017-07-05 16:00] VITALS: BP 153/68; PULSE 64; RESP 18; TEMP 98; O2SAT 98
--- NOTE | 2017-07-05 16:03 | PD.ORT.PN ---
Subjective Subjective Remarks Patient resting comfortably today. Still with left knee pain and swelling. Denies fevers, chills, N/V Objective Vitals Vital Signs Date Time Temp Pulse Resp B/P (MAP) Pulse Ox O2 Delivery O2 Flow Rate FiO2 07/05/17 11:31 97.7 60 16 139/63 (88) 98 07/05/17 08:00 98.3 66 18 143/66 (91) 98 07/05/17 03:18 98.4 66 16 123/62 (82) 98 07/04/17 23:06 98.4 75 17 126/56 (79) 97 07/04/17 19:31 99.0 85 17 159/75 (103) 98 I/O 07/04/17 07/04/17 07/04/17 07/05/17 07/05/17 07/05/17 07:00 15:00 23:00 07:00 15:00 23:00 Intake Total 1020 ml 525 ml Balance 1020 ml 525 ml Intake Oral 1020 ml 25 ml IV Total 500 ml # Voids 3 # Bowel Movements 0 Result Diagram: 07/04/17 0735 07/04/17 0735 Objective Remarks Awake, alert, NAD LLE: swelling and warmth about the knee. No significant erythema. No draining wounds. Prior surgical incision well healed. NVI distally Assessment & Plan Assessment and Plan Left knee swelling and pain, concern for infection after TKA 1. Discussed with patient that given the WBC count in the aspiration and her TKA , I would be concerned for infection. However, with a TKA in place, she requires at minimum and I&D and polyethylene exchange. I explained the other option would be a complete removal of her prosthesis with antibiotic cement spacer, however, I would prefer to attempt an I&D and polyethylene exchange and a course of IV antibiotics prior to that. Should she fail this, then she would likely require a total explant with spacer. 2. Continue antibiotics 3. Will follow cultures 4. Plan for likely OR today for I&D and poly swap. Armando TKA 5. KEZIAO Mariana Koch MD Jul 05, 2017 16:03
[2017-07-05] MEDS ORDERED: LATA0.002 EACH EYE (17:29)
[2017-07-05] MEDS ORDERED: GENTAMICIN SULFATE 80 MG/2 ML VIAL ONE (17:55)
[2017-07-05] MEDS: cefTRIAXone INJ 1,000 MG in SODIUM CHLORIDE 0.9% INJ 100 ML IV SCH ×2 (18:00→19:48)
[2017-07-05] MEDS ORDERED: TOBRAMYCIN SULFATE 1200 MG VIAL ONE (18:13)
[2017-07-05] MEDS ORDERED: VANCOMYCIN HCL 1000 MG VIAL ONE (18:13)
[2017-07-05] MEDS: ENOXAPARIN SODIUM 40 MG/0.4 ML SYRINGE SQ SCH (20:00)
[2017-07-05] MEDS ORDERED: DO NOT ADM ANY ANTICOAGULANT DRUGS PRN (20:12)
--- NOTE | 2017-07-05 20:12 | HHI.PR ---
cc: Mariana Koch MD Immediate Post Op Note Procedure Date: Jul 05, 2017 Pre Op Diagnosis: Left TKA infection Post Op Diagnosis: same Surgeon: Mariana Koch Manager Adobe(s): Chevy Taylor Procedure: I&D, polyethylene exchange left TKA Additional Information: Small patellar tendon avulsion - reinforced with suture anchor Specimen(s) removed: Cultures taken Estimated blood loss: minimal Anesthesia: General Drains: Hemovac Patient to: PACU Patient Condition: Good Implant/Devices: SEE IMPLANT LOG (if applicable) Mariana Koch MD Jul 05, 2017 20:12
[2017-07-05] MEDS ORDERED: LACTULOSE SYRUP 20 GM/30 ML CUP PO PRN (20:15)
[2017-07-05] MEDS ORDERED: MAGNESIUM HYDROXIDE SUSP 30 ML CUP PO PRN (20:15)
[2017-07-05] MEDS ORDERED: SODIUM CHLORIDE 0.9% FLUSH 10 ML FLUSH IV FLUSH PRN (20:15)
[2017-07-05] MEDS ORDERED: SENNOSIDES 8.6 MG TAB PO PRN (20:15)
[2017-07-05] MEDS ORDERED: BISACODYL 10 MG SUPP RECTAL PRN (20:15)
[2017-07-05] MEDS ORDERED: Post-op Orders (for Pharmacy) MISC XX ONE (20:15)
[2017-07-05] MEDS ORDERED: *morphine SULFATE 8 MG/ML PERIprocedure ONLY ONE (20:53)
[2017-07-05 22:35] VITALS: BP 151/79; PULSE 69; RESP 17; TEMP 97.5; O2SAT 95
[2017-07-05] MEDS ORDERED: PHARMACY ORDERED LAB ONE (23:45)
[2017-07-06] MEDS: ACETAMINOPHEN/HYDROcodone 325 MG/10 MG TAB PO PRN ×4 (00:31→12:27)
[2017-07-06] MEDS: VANCOMYCIN 1,000 MG/NS 250 ML IV SCH ×6 (00:32→22:52)
[2017-07-06] MEDS: SODIUM CHLORIDE 0.9% FLUSH 10 ML FLUSH IV FLUSH SCH ×3 (00:35→19:57)
[2017-07-06] MEDS: levETIRAcetam 500 MG TAB PO SCH ×3 (00:37→19:57)
[2017-07-06 04:23] VITALS: BP 166/70; PULSE 70; RESP 17; TEMP 97; O2SAT 96
[2017-07-06 06:55] LABS: AUTOMATED NEUTROPHIL # 9.2 TH/MM3 (1.8-7.7); BASOPHIL % 0.1 % (0.0-2.0); HEMATOCRIT 34.4 % (35.0-46.0); HEMO FLAGS DIFF FINAL; LYMPH % 6.9 % (9.0-44.0); LYMPHOCYTE # 0.7 TH/MM3 (1.0-4.8); MEAN CORPUSCULAR HEMOGLOBIN 28.8 PG (27.0-34.0); MEAN CORPUSCULAR HGB CONC 33.1 % (32.0-36.0); MONO % 5.4 % (0.0-8.0); NEUT % 87.6 % (16.0-70.0); PLATELET COUNT 245 TH/MM3 (150-450); RED BLOOD COUNT 3.96 MIL/MM3 (4.00-5.30); RED CELL DISTRIBUTION WIDTH 13.4 % (11.6-17.2); WHITE BLOOD COUNT 10.5 TH/MM3 (4.0-11.0)
[2017-07-06 07:27] LABS: ALKALINE PHOSPHATASE 280 U/L (45-117); ALT (GPT) 142 U/L (10-53); ANION GAP 9 MEQ/L (5-15); AST (GOT) 181 U/L (15-37); BICARBONATE 27.9 MEQ/L (21.0-32.0); BLOOD UREA NITROGEN 7 MG/DL (7-18); CHLORIDE 101 MEQ/L (98-107); GLOMERULAR FILTRATION RATE 100 ML/MIN (>89); POTASSIUM 3.8 MEQ/L (3.5-5.1); SODIUM (NA) 138 MEQ/L (136-145); TOTAL BILIRUBIN ADULT 0.2 MG/DL (0.2-1.0)
[2017-07-06 08:00] VITALS: BP 166/77; PULSE 79; RESP 18; TEMP 96.4; O2SAT 97
--- NOTE | 2017-07-06 08:11 | PD.ORT.PN ---
Subjective Subjective Remarks Patient resting comfortably today. Denies any significant pain. Denies fevers, chills, N/V Objective Vitals Vital Signs Date Time Temp Pulse Resp B/P (MAP) Pulse Ox O2 Delivery O2 Flow Rate FiO2 07/06/17 05:30 17 07/06/17 04:23 97.0 70 17 166/70 (102) 96 07/05/17 22:35 97.5 69 17 151/79 (103) 95 07/05/17 21:30 98.7 71 14 152/56 (88) 94 Nasal Cannula 2 07/05/17 21:16 18 07/05/17 21:15 80 16 169/72 (104) 96 Nasal Cannula 2 07/05/17 21:00 75 12 153/70 (97) 96 Nasal Cannula 4 07/05/17 20:45 72 19 159/72 (101) 96 Nasal Cannula 4 07/05/17 20:32 69 14 151/67 (95) 97 Nasal Cannula 4 07/05/17 20:25 98.4 72 15 144/64 (90) 95 Nasal Cannula 4 07/05/17 16:00 98.0 64 18 153/68 (96) 98 07/05/17 11:31 97.7 60 16 139/63 (88) 98 I/O 07/05/17 07/05/17 07/05/17 07/06/17 07/06/17 07/06/17 07:00 15:00 23:00 07:00 15:00 23:00 Intake Total 525 ml 1940 ml 490 ml Output Total 480 ml 50 ml Balance 525 ml 1460 ml 440 ml Intake Oral 25 ml 240 ml 240 ml IV Total 500 ml 400 ml 250 ml Other 1300 ml Output Urine Total 400 ml Drainage Total 30 ml 50 ml Estimated Blood Loss 50 ml # Voids 1 2 # Bowel Movements 0 Result Diagram: 07/06/17 0555 07/06/17 0553 Objective Remarks Awake, alert, NAD LLE: dressing in place without significant drainage. Hemovac in place. Knee immobilizer. NVI distally Assessment & Plan Assessment and Plan Left total knee arthroplasty infection, postop day 1 status post I&D and polyethylene exchange 1. weightbearing as tolerated left lower extremity in knee immobilizer. Patient should remain in knee immobilizer without range of motion of the left knee until follow-up. 2. Hemovac to be pulled this morning. 3. Lovenox for DVT prophylaxis 4. Continue antibiotics for concern for infection. We will follow intraop and cultures from ED aspiration. Mariana Koch MD Jul 06, 2017 08:11
[2017-07-06] MEDS: LACTOBACILLUS ACIDOPHILUS TAB PO SCH ×3 (08:45→16:58)
[2017-07-06] MEDS: VENLAFAXINE HCL XR 75 MG CAP PO SCH (08:46)
[2017-07-06] MEDS: DOCUSATE SODIUM 50 MG/SENNA 8.6 MG TAB PO SCH ×2 (08:46→19:56)
[2017-07-06] MEDS: FAMOTIDINE 20 MG TAB PO SCH ×2 (08:46→19:56)
[2017-07-06] MEDS: ATENOLOL 25 MG TAB PO SCH (08:46)
[2017-07-06] MEDS ORDERED: PNEUMOCOCCAL POLYVALENT INJ 25 MCG/0.5 ML SYR IM ONE (09:00)
[2017-07-06] MEDS ORDERED: INFLUENZA VIRUS VACCINE (QUADRIVALENT) 0.5 ML SYR IM ONE (09:00)
[2017-07-06] MEDS: BRIMONIDINE TARTRATE 0.2% OPHT SOLN 5 ML BTL EACH EYE SCH ×2 (09:00→20:02)
--- NOTE | 2017-07-06 11:02 | PD.OP ---
cc: Mariana Koch MD Operative Report Left total knee arthroplasty infection Postoperative Diagnosis: same Procedure: 1. Irrigation and debridement left total knee arthroplasty 2. Revision left total knee arthroplasty with polyethylene exchange. Anesthesia: General Surgeon: Mariana Koch Coin Box Inspector(s): Chevy Taylor Operation and Findings: Indications for procedure: The patient is a 71-year-old female who presented to the emergency department with complaints of 2-3 day history of left knee pain and swelling. The patient had a total knee arthroplasty placed back in [place] over 3 years ago with subsequent revision for patellar resurfacing in 2012. Patient states she's never been fully happy with the knee however up until 2-3 days ago she had no significant pain or swelling. Patient denied any trauma. An aspiration was performed in the emergency department which demonstrated over 40,000 white blood cells in the knee with 92% neutrophils. With this in mind, I discussed with the patient the concern for infection given her white blood cells over 40,000. I did discuss options with nonoperative management and IV antibiotics versus operative intervention. In terms of operative intervention I offered the patient an irrigation and debridement with polyethylene exchange versus a complete explant with placement of antibiotic spacer. I discussed that despite the fact that cultures remained negative, I was still highly concerning for infection and therefore would recommend at minimum irrigation and debridement with polyethylene exchange. Risks, benefits, alternatives were discussed with the patient. Risks of surgery including but not limited to: Infection, loosening of prosthesis, periprosthetic fracture, damage to neurovascular structures, arthrofibrosis with stiffness, chronic knee pain, possible need for further surgery, and other unforeseen complications were discussed with the patient. She did decide to proceed with the above-mentioned procedure. Description of procedure: The patient was brought back to the operating room and placed supine on operating room table. General anesthesia then ensued. A tourniquet was placed proximal on the patient's thigh and the patient was prepped and draped in standard sterile fashion. Patient had been on scheduled antibiotics after aspiration in the ED. A timeout was performed to identify the correct patient side and site and procedure to be performed. The leg was exsanguinated and the tourniquet was inflated to 250 mmHg. A longitudinal incision was made over the prior surgical site and a medial parapatellar arthrotomy was performed. The same arthrotomy was made following prior Ethibond sutures which remained in place. Upon entering the knee joint, there was a significant amount of synovial fluid, however this did not appear to be grossly purulent. This fluid was cultured. Dissection around the medial and lateral aspect of the tibial tray was performed to allow for eversion of the patella as the knee was brought into flexion. The existing polyethylene was removed and the knee was thoroughly irrigated with over 6 L of normal saline. The same size polyethylene was then inserted and verified to be fully seated. As I turned my attention to repairing the medial parapatellar arthrotomy, it was noted that the distal aspect of the patellar tendon insertion there appeared to be a part of its insertion which had avulsed. A Mitek suture anchor was placed and the patellar tendon was repaired down to its insertion. A medium Hemovac drain was placed. Stimulan calcium phosphate antibiotic beads, which had previously been made and let set to cure, were then placed into the knee. The medial parapatellar arthrotomy was closed with PDS suture. The patellar tendon and arthrotomy was found to be secure through range of motion. the subcutaneous tissue was then closed with antibiotic coated Vicryl sutures and the skin closed with janette. Sterile dressings were then placed on the knee and a knee immobilizer placed. The patient was then awoken from general anesthesia without complication. Disposition: Patient was instructed she can be weightbearing as tolerated in her knee immobilizer. The patient with a knee immobilizer at all times for the next 2 weeks, given the reinforcement of the patellar tendon insertion. At that time I suspect we will be able to start gentle range of motion. Mariana Koch MD Jul 06, 2017 11:02
[2017-07-06 12:00] VITALS: BP 148/70; PULSE 76; RESP 18; TEMP 97.3; O2SAT 93
--- NOTE | 2017-07-06 15:26 | HHI.PR ---
Subjective Remarks Patient seen today around 1 PM. Says she is feeling all right except for pain. Denies any chest pain or shortness of breath. Denies any nausea or vomiting. She reports continued pain in left lower extremity. Objective Vital Signs Date Time Temp Pulse Resp B/P (MAP) Pulse Ox O2 Delivery O2 Flow Rate FiO2 07/06/17 12:00 97.3 76 18 148/70 (96) 93 07/06/17 08:00 96.4 79 18 166/77 (106) 97 07/06/17 05:30 17 07/06/17 04:23 97.0 70 17 166/70 (102) 96 07/05/17 22:35 97.5 69 17 151/79 (103) 95 07/05/17 21:30 98.7 71 14 152/56 (88) 94 Nasal Cannula 2 07/05/17 21:16 18 07/05/17 21:15 80 16 169/72 (104) 96 Nasal Cannula 2 07/05/17 21:00 75 12 153/70 (97) 96 Nasal Cannula 4 07/05/17 20:45 72 19 159/72 (101) 96 Nasal Cannula 4 07/05/17 20:32 69 14 151/67 (95) 97 Nasal Cannula 4 07/05/17 20:25 98.4 72 15 144/64 (90) 95 Nasal Cannula 4 07/05/17 16:00 98.0 64 18 153/68 (96) 98 I/O 07/05/17 07/05/17 07/05/17 07/06/17 07/06/17 07/06/17 07:00 15:00 23:00 07:00 15:00 23:00 Intake Total 525 ml 1940 ml 490 ml 480 ml Output Total 480 ml 50 ml Balance 525 ml 1460 ml 440 ml 480 ml Intake Oral 25 ml 240 ml 240 ml 480 ml IV Total 500 ml 400 ml 250 ml Other 1300 ml Output Urine Total 400 ml Drainage Total 30 ml 50 ml Estimated Blood Loss 50 ml # Voids 1 2 2 # Bowel Movements 0 0 Result Diagram: 07/06/17 0555 07/06/17 0553 Objective Remarks GENERAL: Patient lying in bed. Appears comfortable. SKIN: Warm and dry. HEAD: Normocephalic. EYES: No scleral icterus. No injection or drainage. NECK: Supple, trachea midline. No JVD. CARDIOVASCULAR: Regular rate and rhythm without murmurs, gallops, or rubs. RESPIRATORY: Breath sounds equal bilaterally. No accessory muscle use. GASTROINTESTINAL: Abdomen soft, non-tender, nondistended. No rebound or guarding. MUSCULOSKELETAL: No cyanosis, or edema. Left lower extremity with leg brace. Moves toes bilaterally. Sensation and peripheral perfusion intact BACK: Nontender without obvious deformity. No CVA tenderness. A/P Assessment and Plan 71-year-old female with history of HTN, HLD, osteoarthritis, presents with left knee pain and swelling x2days //Left Knee Pain/Swelling: hx of left TKA and revision, last surgery 3 years ago. Now with 2 days pain/swelling, no recent injury/trauma. Afebrile, no leukocytosis. -S/p Arthrocentesis in the ED, joint fluid studies reviewed, partly traumatic however also with elevated WBCs, culture with NGTD -Continue antibiotics with IV Rocephin and IV Vanco -Consult orthopedics, plan for I&D and possible revision in the OR today -Pain control with [place] prn and IV morphine prn -Elevate the leg = Wound cultures negative today. We'll consult infectious disease. Follow-up cultures. Continue antibiotics for now. //Transaminitis. Alkaline phosphatase 280, AST 181, ALP 142. -Abdominal exam benign. -Check CK. Check liver ultrasound. Discontinue acetaminophen //Hypertension: chronic, stable -continue home meds including atenolol 25mg daily, amlodipine 10mg daily -monitor BP, adjust antihypertensives as needed //All other medical conditions stable, continue home medications as appropriate. //DVT Prophylaxis: teds/SCDs to the nonoperative leg; avoid chemoprophylaxis with upcoming surgery Discharge Planning Pending clearance from orthopedics. Physical therapy recommends home with home health PT. Yasir Lawson MD Jul 06, 2017 15:25
[2017-07-06] MEDS ORDERED: NALOXONE HCL 0.4 MG/ML AMP IV PUSH PRN (15:30)
[2017-07-06 16:00] VITALS: BP 161/77; PULSE 97; RESP 18; TEMP 98; O2SAT 98
[2017-07-06 19:00] VITALS: BP 143/89; PULSE 92; RESP 16; TEMP 98.1; O2SAT 96
[2017-07-06] MEDS: ENOXAPARIN SODIUM 40 MG/0.4 ML SYRINGE SQ SCH (19:56)
[2017-07-07] VITALS: BP 157/77; PULSE 76; RESP 17; TEMP 98.7; O2SAT 99
[2017-07-07 08:00] VITALS: BP 153/84; PULSE 83; RESP 18; TEMP 98.1; O2SAT 94
[2017-07-07] MEDS: DOCUSATE SODIUM 50 MG/SENNA 8.6 MG TAB PO SCH ×2 (08:56→19:30)
[2017-07-07] MEDS: ATENOLOL 25 MG TAB PO SCH (08:56)
[2017-07-07] MEDS: LACTOBACILLUS ACIDOPHILUS TAB PO SCH ×3 (08:56→18:12)
[2017-07-07] MEDS: VENLAFAXINE HCL XR 75 MG CAP PO SCH (08:56)
[2017-07-07] MEDS: FAMOTIDINE 20 MG TAB PO SCH ×2 (08:56→19:29)
[2017-07-07] MEDS: levETIRAcetam 500 MG TAB PO SCH ×2 (08:56→19:30)
[2017-07-07] MEDS: BRIMONIDINE TARTRATE 0.2% OPHT SOLN 5 ML BTL EACH EYE SCH ×2 (08:58→19:30)
[2017-07-07] MEDS: SODIUM CHLORIDE 0.9% FLUSH 10 ML FLUSH IV FLUSH SCH ×2 (08:59→19:30)
--- NOTE | 2017-07-07 09:03 | RADRPT ---
EXAM DATE/TIME: 07/07/2017 07:56 [facility] COMPARISON: No previous studies available for comparison. INDICATIONS : Increased lab values. MEDICAL HISTORY : Hypercholesterolemia. Hypertension. Glaucoma. Seizures. Arthritis. Anemia. Vertigo. SURGICAL HISTORY : Cholecystectomy. Left lung lobectomy. ENCOUNTER: Initial ACUITY: 2 days PAIN SCORE: 6/10 LOCATION: Abdomen. MEASUREMENTS: LIVER: 11.7 cm length COMMON DUCT: 12 mm RIGHT KIDNEY: 9.0 x 4.7 x 4.9 cm SPLEEN: 7.5 cm length FINDINGS: LIVER: Normal echotexture without focal lesion or ductal dilatation. Hepatopedal flow within the portal vein . COMMON DUCT: Common bile duct is 12 mm in diameter. No choledocholithiasis appreciated. GALLBLADDER: Surgically absent. PANCREAS: The visualized portions are within normal limits. RIGHT KIDNEY: The kidney is small in size a somewhat echogenic. There is cortical thinning. No hydronephrosis. SPLEEN: No focal lesion. CONCLUSION: 1. The visualized portions of the pancreas show a mildly dilated duct measuring 3 mm. The common bile duct measures 12 mm which is just out of the range of normal for what is typically seen in patients that are status post cholecystectomy. No choledocholithiasis observed. No intrahepatic ductal dilatat ion observed. This may simply relate to a capacitance affect from prior cholecystectomy, however, a b ayaka visualization of the anatomy is suggested to exclude an obstructing lesion at the pancreatic he ad level. Either consider MRCP or CT scan with IV contrast. 2. Prior cholecystectomy. 3. Small echogenic right kidney suggesting underlying medical renal disease. Adrián Ward Jr., MD on July 07, 2017 at 8:56 Board Certified Radiologist. This report was verified electronically.
[2017-07-07] MEDS ORDERED: ACETAMINOPHEN 500 MG CPLT PO PRN (10:15)
[2017-07-07] MEDS ORDERED: HYDROmorphone HCL PF 0.5 MG/0.5 ML SYRINGE IV PUSH PRN (10:15)
--- NOTE | 2017-07-07 11:13 | HHI.PR ---
Subjective Remarks Follow up for suspected left knee arthroplasty infection. Patient is currently doing well. Denies any fever, chills. Objective Vitals Vital Signs Date Time Temp Pulse Resp B/P (MAP) Pulse Ox O2 Delivery O2 Flow Rate FiO2 07/07/17 08:00 98.1 83 18 153/84 (107) 94 07/07/17 00:00 98.7 76 17 157/77 (103) 99 07/06/17 19:00 98.1 92 16 143/89 (107) 96 07/06/17 16:00 98.0 97 18 161/77 (105) 98 07/06/17 12:00 97.3 76 18 148/70 (96) 93 I/O 07/06/17 07/06/17 07/06/17 07/07/17 07/07/17 07/07/17 07:00 15:00 23:00 07:00 15:00 23:00 Intake Total 490 ml 480 ml 480 ml 730 ml Output Total 50 ml 0 ml Balance 440 ml 480 ml 480 ml 730 ml Intake Oral 240 ml 480 ml 480 ml 480 ml IV Total 250 ml 250 ml Drainage Total 50 ml 0 ml # Voids 2 2 3 4 # Bowel Movements 0 0 0 Result Diagram: 07/06/17 0555 07/06/17 0553 Imaging Last Impressions Liver Ultrasound 07/07/17 0000 Signed Impressions: Service Date/Time: Friday, July 07, 2017 07:56 - CONCLUSION: 1. The visualized portions of the pancreas show a mildly dilated duct measuring 3 mm. The common bile duct measures 12 mm which is just out of the range of normal for what is typically seen in patients that are status post cholecystectomy. No choledocholithiasis observed. No intrahepatic ductal dilatation observed. This may simply relate to a capacitance affect from prior cholecystectomy, however, a better visualization of the anatomy is suggested to exclude an obstructing lesion at the pancreatic head level. Either consider MRCP or CT scan with IV contrast. 2. Prior cholecystectomy. 3. Small echogenic right kidney suggesting underlying medical renal disease. Adrián Ward Jr., MD Lower Extremity Ultrasound 07/03/17 0000 Signed Impressions: Service Date/Time: Monday, July 03, 2017 11:26 - CONCLUSION: No DVT in left leg. Hakeem oRbles MD Knee X-Ray 07/03/17 0000 Signed Impressions: Service Date/Time: Monday, July 03, 2017 12:16 - CONCLUSION: Joint effusion negative for fracture. Jesus Donovan MD FACR Objective Remarks GENERAL: Alert, NAD. SKIN: Warm and dry. HEAD: Normocephalic. EYES: No scleral icterus. No injection or drainage. NECK: Supple, trachea midline. No JVD or lymphadenopathy. CARDIOVASCULAR: Regular rate and rhythm without murmurs, gallops, or rubs. RESPIRATORY: Breath sounds equal bilaterally. No accessory muscle use. GASTROINTESTINAL: Abdomen soft, non-tender, nondistended. MUSCULOSKELETAL: No cyanosis, or edema. Left knee immobilizer in place. BACK: Nontender without obvious deformity. No CVA tenderness. Procedures 07/05/2017 1. Irrigation and debridement left total knee arthroplasty 2. Revision left total knee arthroplasty with polyethylene exchange. A/P Assessment and Plan 71-year-old female with history of HTN, HLD, osteoarthritis, presents with left knee pain and swelling x2days - Suspected left knee hardware infection - Left total knee arthroplasty with revision in [place]. - Patient was admitted due to two day duration of pain, swelling. - Arthrocentesis showed WBC 41.5K with neutrophil count 97%. - Patient underwent I&D and polyethylene exchange. - Currently patient is on Vancomycin and Ceftriaxone. However, culture has not grown anything. - Op note indicated no purulent fluid - ID consulted, will follow ID recs. However, observing patient without any abx would be a reasonable approach as well. Transaminitis - LFTs are increased AST, ALT, Alk Phos: 78, 78, 183 --> 181, 142, 280. - Liver US shows no choledocholithiasis, CBD is dilated which could be due to cholecystectomy. - If LFTs continue to trend up, we will consider MRCP as recommended on Liver US. - Hypertension - Continue Amlodipine 10mg Qday, Atenolol 25mg Qday. - Hx of Seizure disorder - currently on Keppra 500mg BID. Full code. Lovenox, Famotidine. Kali Vieyra DO Jul 07, 2017 11:12
--- NOTE | 2017-07-07 11:14 | HHI.FF ---
Face to Face Verification Diagnosis: (1) Septic arthritis Physical Therapy Order: Evaluate and Treat, Improve ambulation, Strength and gait training Home Health Nursing Order: Medical education Signs/symptoms of disease process Wound care and dressing changes Nursing assessment with vital signs I have seen patient Hattie Kent on 07/07/17. My clinical findings support the need for the requested home health care services because: Ltd mobility - disease progression Deconditioned w/ increased weakness Limited ability to care for self Need for psychosocial assistance Impaired cognition/judgement High risk of falls Infection w/ risk of complications I certify that my clinical findings support that this patient is homebound because: Post-op weakness Unsteady gait/balance Unsafe to leave home unassisted Need for psychosocial assistance [id number] bed/chair Unable to use public transportation Kali Vieyra DO Jul 07, 2017 11:14 am
[2017-07-07] MEDS ORDERED: PHARMACY ORDERED LAB ONE ×2 (11:45→19:45)
[2017-07-07 12:00] VITALS: BP 165/80; PULSE 81; RESP 18; TEMP 97.4; O2SAT 93
[2017-07-07] MEDS: VANCOMYCIN 1,000 MG/NS 250 ML IV SCH ×4 (12:00→19:00)
--- NOTE | 2017-07-07 12:59 | PD.ORT.PN ---
Subjective Subjective Remarks Patient resting comfortably today. Denies any significant pain. Denies fevers, chills, N/V Objective Vitals Vital Signs Date Time Temp Pulse Resp B/P (MAP) Pulse Ox O2 Delivery O2 Flow Rate FiO2 07/07/17 08:00 98.1 83 18 153/84 (107) 94 07/07/17 00:00 98.7 76 17 157/77 (103) 99 07/06/17 19:00 98.1 92 16 143/89 (107) 96 07/06/17 16:00 98.0 97 18 161/77 (105) 98 I/O 07/06/17 07/06/17 07/06/17 07/07/17 07/07/17 07/07/17 07:00 15:00 23:00 07:00 15:00 23:00 Intake Total 490 ml 480 ml 480 ml 730 ml Output Total 50 ml 0 ml Balance 440 ml 480 ml 480 ml 730 ml Intake Oral 240 ml 480 ml 480 ml 480 ml IV Total 250 ml 250 ml Drainage Total 50 ml 0 ml # Voids 2 2 3 4 # Bowel Movements 0 0 0 Result Diagram: 07/06/17 0555 07/06/17 0553 Imaging Last 24 hours Impressions Liver Ultrasound 07/07/17 0000 Signed Impressions: Service Date/Time: Friday, July 07, 2017 07:56 - CONCLUSION: 1. The visualized portions of the pancreas show a mildly dilated duct measuring 3 mm. The common bile duct measures 12 mm which is just out of the range of normal for what is typically seen in patients that are status post cholecystectomy. No choledocholithiasis observed. No intrahepatic ductal dilatation observed. This may simply relate to a capacitance affect from prior cholecystectomy, however, a better visualization of the anatomy is suggested to exclude an obstructing lesion at the pancreatic head level. Either consider MRCP or CT scan with IV contrast. 2. Prior cholecystectomy. 3. Small echogenic right kidney suggesting underlying medical renal disease. Adrián Ward Jr., MD Objective Remarks Awake, alert, NAD LLE: dressing in place without significant drainage. Knee immobilizer. NVI distally Assessment & Plan Assessment and Plan Left total knee arthroplasty infection, postop day 1 status post I&D and polyethylene exchange 1. weightbearing as tolerated left lower extremity in knee immobilizer. Patient should remain in knee immobilizer without range of motion of the left knee until follow-up. 2. Lovenox for DVT ppx 3. Recommend ID consultation for antibiotic management as patient does require treatment for several weeks despite negative cultures. 4. Dressing changes to start today 5. Ok for discharge from ortho standpoint after antibiotics arranged for discharge Mariana Koch MD Jul 07, 2017 12:59
[2017-07-07] MEDS: oxyCODONE/ACETAMINOPHEN 7.5 MG/325 MG TAB PO PRN (14:54)
[2017-07-07 16:00] VITALS: BP 133/66; PULSE 82; RESP 18; TEMP 98.6; O2SAT 96
--- NOTE | 2017-07-07 16:23 | PD.ID.CON ---
History of Present Illness Service ID Consult Requested By Dr Lawson Reason for Consult ? knee infection Primary Care Physician Unknown Diagnoses: History of Present Illness 71 yo female presented with history of L TKA and subsequent revision TKA in [place] who reports chronic knee pain since surgery with recent increase in knee pain and swelling over the last 2-3 days. No fevers, chills, or recent illnesses. NNo prior trauma. No leukocytosis Knee was aspirated and 40 K WBC notedn with neutrophil predominance Clx are negartive @ 72 hrs Sp Irrigation and debridement left total knee arthroplasty and Revision left total knee arthroplasty with polyethylene exchange yday Op clx is negative @ 48 hrs ESR 38 Review of Systems Except as stated in HPI: all other systems reviewed are Neg Past Family Social History Allergies: Coded Allergies: aspirin (Verified Allergy, Intermediate, burning stomach, 07/03/17) Active Ordered Medications Medications where reviewed in EMR Antibiotics Include: CFTX vancomycin Physical Exam Vital Signs Vital Signs Date Time Temp Pulse Resp B/P (MAP) Pulse Ox O2 Delivery O2 Flow Rate FiO2 07/07/17 12:00 97.4 81 18 165/80 (108) 93 07/07/17 08:00 98.1 83 18 153/84 (107) 94 07/07/17 00:00 98.7 76 17 157/77 (103) 99 07/06/17 19:00 98.1 92 16 143/89 (107) 96 Physical Exam CONSTITUTIONAL/GENERAL: This is an adequately nourished patient, in no apparent distress. TUBES/LINES/DRAINS: SKIN: No jaundice, rashes, or lesions. Skin temperature appropriate. Not diaphoretic. HEAD: Atraumatic. Normocephalic. EYES: Pupils equal and round and reactive. Extraocular motions intact. No scleral icterus. No injection or drainage. Fundi not examined. ENT: Hearing grossly normal. Nose without bleeding or purulent drainage. Throat without visible erythema, exudates, masses, or lesions. NECK: Trachea midline. Supple, nontender. CARDIOVASCULAR: Regular rate and rhythm without murmurs, gallops, or rubs. No JVD. Peripheral pulses symmetric. RESPIRATORY/CHEST: Symmetric, unlabored respirations. Clear to auscultation. Breath sounds equal bilaterally. No wheezes, rales, or rhonchi. GASTROINTESTINAL: Abdomen soft, non-tender, nondistended. No hepato-splenomegaly , or palpable masses. No guarding. Bowel sounds present. GENITOURINARY: Without palpable bladder distension. MUSCULOSKELETAL: Extremities without clubbing, cyanosis, or edema. L knee incision clean and dry with minimal drainage on the dressing LYMPHATICS: No palpable cervical or supraclavicular adenopathy. NEUROLOGICAL: Awake and alert. Motor and sensory grossly within normal limits. Follows commands. Clear speech. Moves all extremities. PSYCHIATRIC: No obvious anxiety/depression. no apparent hallucinations or other psychotic thought process. Laboratory Laboratory Tests Test 07/06/17 19:03 Total Creatine Kinase 154 Hepatitis A IgM Antibody NEGATIVE Hepatitis B Surface Antigen NEGATIVE Hepatitis B Core IgM Antibody NEGATIVE Hepatitis C Antibody NEGATIVE Date/Time Source Procedure Growth Status 07/03/17 13:50 Fluid Synovial Fluid Gram Stain - Final Complete 07/03/17 13:50 Fluid Synovial Fluid Body Fluid Culture - Final NO GROWTH IN 72 HRS.--AEROBICALLY OR ... Complete 07/05/17 20:37 Wound Knee Fungal Smear - Final NO FUNGAL ELEMENTS SEEN. Resulted 07/05/17 20:37 Wound Knee Fungal Culture Pending Resulted Result Diagram: 07/06/17 0555 07/06/17 0553 Imaging Last Impressions Liver Ultrasound 07/07/17 0000 Signed Impressions: Service Date/Time: Friday, July 07, 2017 07:56 - CONCLUSION: 1. The visualized portions of the pancreas show a mildly dilated duct measuring 3 mm. The common bile duct measures 12 mm which is just out of the range of normal for what is typically seen in patients that are status post cholecystectomy. No choledocholithiasis observed. No intrahepatic ductal dilatation observed. This may simply relate to a capacitance affect from prior cholecystectomy, however, a better visualization of the anatomy is suggested to exclude an obstructing lesion at the pancreatic head level. Either consider MRCP or CT scan with IV contrast. 2. Prior cholecystectomy. 3. Small echogenic right kidney suggesting underlying medical renal disease. Adrián Ward Jr., MD Lower Extremity Ultrasound 07/03/17 0000 Signed Impressions: Service Date/Time: Monday, July 03, 2017 11:26 - CONCLUSION: No DVT in left leg. Hakeem Robles MD Knee X-Ray 07/03/17 0000 Signed Impressions: Service Date/Time: Monday, July 03, 2017 12:16 - CONCLUSION: Joint effusion negative for fracture. Jesus Donovan MD FACR Assessment and Plan Assessment and Plan Suspected infected L TKA based on high WBC, cultures are negative - ESR not sugg of septic knee infx - looks likel no prior abx use cont vanco, zosyn fu clx untill final further rec's to follow will d/w orthopedist prior to rec's Discussed Condition With Ninfa Payne MD Jul 07, 2017 16:23
[2017-07-07] MEDS: cefTRIAXone INJ 1,000 MG in SODIUM CHLORIDE 0.9% INJ 100 ML IV SCH (18:13)
[2017-07-07] MEDS: ENOXAPARIN SODIUM 40 MG/0.4 ML SYRINGE SQ SCH (19:30)
[2017-07-07 20:30] VITALS: BP 142/73; PULSE 78; RESP 17; TEMP 98.5; O2SAT 97
[2017-07-07] MEDS: TEMAZEPAM 15 MG CAP PO PRN (22:43)
[2017-07-08] VITALS: BP 146/69; PULSE 75; RESP 18; TEMP 98.2; O2SAT 100
[2017-07-08] MEDS: VANCOMYCIN 1,000 MG/NS 250 ML IV SCH ×4 (06:09→20:10)
[2017-07-08 08:00] VITALS: BP 181/78; PULSE 79; RESP 17; TEMP 98; O2SAT 98
[2017-07-08] MEDS: FAMOTIDINE 20 MG TAB PO SCH ×2 (08:26→20:08)
[2017-07-08] MEDS: LACTOBACILLUS ACIDOPHILUS TAB PO SCH ×3 (08:26→17:25)
[2017-07-08] MEDS: levETIRAcetam 500 MG TAB PO SCH ×2 (08:26→20:08)
[2017-07-08] MEDS: oxyCODONE/ACETAMINOPHEN 7.5 MG/325 MG TAB PO PRN ×2 (08:27→17:25)
[2017-07-08] MEDS: VENLAFAXINE HCL XR 75 MG CAP PO SCH (08:27)
[2017-07-08] MEDS: ATENOLOL 25 MG TAB PO SCH (08:27)
[2017-07-08] MEDS: DOCUSATE SODIUM 50 MG/SENNA 8.6 MG TAB PO SCH ×2 (08:27→20:08)
[2017-07-08] MEDS: BRIMONIDINE TARTRATE 0.2% OPHT SOLN 5 ML BTL EACH EYE SCH ×2 (08:32→20:11)
[2017-07-08] MEDS: SODIUM CHLORIDE 0.9% FLUSH 10 ML FLUSH IV FLUSH SCH ×2 (08:32→20:09)
[2017-07-08 12:00] VITALS: BP 157/75; PULSE 75; RESP 18; TEMP 98.1; O2SAT 98
--- NOTE | 2017-07-08 14:38 | HHI.PR ---
Subjective Remarks Follow up for suspected left knee arthroplasty infection. Patient is currently doing well. Denies any chest pain, shortness of breath, fever or chills. She wants to know when she can go home. Objective Vitals Vital Signs Date Time Temp Pulse Resp B/P (MAP) Pulse Ox O2 Delivery O2 Flow Rate FiO2 07/08/17 08:00 98.0 79 17 181/78 (112) 98 07/08/17 00:00 98.2 75 18 146/69 (94) 100 07/07/17 20:30 98.5 78 17 142/73 (96) 97 07/07/17 16:00 98.6 82 18 133/66 (88) 96 I/O 07/07/17 07/07/17 07/07/17 07/08/17 07/08/17 07/08/17 07:00 15:00 23:00 07:00 15:00 23:00 Intake Total 730 ml 480 ml 610 ml 240 ml Balance 730 ml 480 ml 610 ml 240 ml Intake Oral 480 ml 480 ml 360 ml 240 ml IV Total 250 ml 250 ml # Voids 4 3 2 1 # Bowel Movements 0 1 0 0 Result Diagram: 07/06/17 0555 07/08/17 0743 Imaging Last Impressions Liver Ultrasound 07/07/17 0000 Signed Impressions: Service Date/Time: Friday, July 07, 2017 07:56 - CONCLUSION: 1. The visualized portions of the pancreas show a mildly dilated duct measuring 3 mm. The common bile duct measures 12 mm which is just out of the range of normal for what is typically seen in patients that are status post cholecystectomy. No choledocholithiasis observed. No intrahepatic ductal dilatation observed. This may simply relate to a capacitance affect from prior cholecystectomy, however, a better visualization of the anatomy is suggested to exclude an obstructing lesion at the pancreatic head level. Either consider MRCP or CT scan with IV contrast. 2. Prior cholecystectomy. 3. Small echogenic right kidney suggesting underlying medical renal disease. Adrián Ward Jr., MD Lower Extremity Ultrasound 07/03/17 0000 Signed Impressions: Service Date/Time: Monday, July 03, 2017 11:26 - CONCLUSION: No DVT in left leg. Hakeem Robles MD Knee X-Ray 07/03/17 0000 Signed Impressions: Service Date/Time: Monday, July 03, 2017 12:16 - CONCLUSION: Joint effusion negative for fracture. Jesus Donovan MD FACR Objective Remarks GENERAL: Alert, NAD. SKIN: Warm and dry. HEAD: Normocephalic. EYES: No scleral icterus. No injection or drainage. NECK: Supple, trachea midline. No JVD or lymphadenopathy. CARDIOVASCULAR: Regular rate and rhythm without murmurs, gallops, or rubs. RESPIRATORY: Breath sounds equal bilaterally. No accessory muscle use. GASTROINTESTINAL: Abdomen soft, non-tender, nondistended. MUSCULOSKELETAL: No cyanosis, or edema. Left knee immobilizer in place. BACK: Nontender without obvious deformity. No CVA tenderness. Procedures 07/05/2017 1. Irrigation and debridement left total knee arthroplasty 2. Revision left total knee arthroplasty with polyethylene exchange. A/P Assessment and Plan 71-year-old female with history of HTN, HLD, osteoarthritis, presents with left knee pain and swelling x2days - Suspected left knee hardware infection - Left total knee arthroplasty with revision in [place]. - Patient was admitted due to two day duration of pain, swelling. - Arthrocentesis showed WBC 41.5K with neutrophil count 97%. - Patient underwent I&D and polyethylene exchange. - Currently patient is on Vancomycin and Ceftriaxone. However, culture has not grown anything. - Op note indicated no purulent fluid - ID consulted, will follow ID recs. However, observing patient without any abx would be a reasonable approach as well. - We'll discuss with ID and possibly orthopedic surgery on Monday, 2016. If no antibiotics required patient may be able to go home on Monday Transaminitis - LFTs are increased AST, ALT, Alk Phos: 78, 78, 183 --> 181, 142, 280. - Liver US shows no choledocholithiasis, CBD is dilated which could be due to cholecystectomy. - If LFTs continue to trend up, we will consider MRCP as recommended on Liver US. - Hypertension - Continue Amlodipine 10mg Qday, Atenolol 25mg Qday. - Hx of Seizure disorder - currently on Keppra 500mg BID. Full code. Lovenox, Famotidine. Kali Vieyra DO Jul 08, 2017 14:37
[2017-07-08 16:00] VITALS: BP 150/70; PULSE 72; RESP 18; TEMP 99.1; O2SAT 97
[2017-07-08] MEDS: cefTRIAXone INJ 1,000 MG in SODIUM CHLORIDE 0.9% INJ 100 ML IV SCH (17:25)
[2017-07-08] MEDS ORDERED: PHARMACY ORDERED LAB ONE (18:45)
[2017-07-08 20:00] VITALS: BP_SYST 119; BP_SYST 132; BP_DIAS 56; BP_DIAS 61; PULSE 73; PULSE 97; RESP 17; TEMP 97.9; TEMP 99.4; O2SAT 94; O2SAT 97
[2017-07-08] MEDS: ENOXAPARIN SODIUM 40 MG/0.4 ML SYRINGE SQ SCH (20:11)
[2017-07-08 23:20] VITALS: BP 146/67; PULSE 76; RESP 18; TEMP 97.6; O2SAT 98
[2017-07-09 04:55] VITALS: BP 166/76; PULSE 77; RESP 17; TEMP 98.6; O2SAT 98
[2017-07-09] MEDS: oxyCODONE/ACETAMINOPHEN 7.5 MG/325 MG TAB PO PRN ×2 (05:25→16:06)
[2017-07-09] MEDS ORDERED: PHARMACY ORDERED LAB ONE (07:45)
--- NOTE | 2017-07-09 08:12 | PD.ORT.PN ---
Subjective Subjective Remarks Patient resting comfortably today. Denies any significant pain. Denies fevers, chills, N/V Reports left knee feels better. Objective Vitals Vital Signs Date Time Temp Pulse Resp B/P (MAP) Pulse Ox O2 Delivery O2 Flow Rate FiO2 07/09/17 04:55 98.6 77 17 166/76 (106) 98 07/08/17 23:20 97.6 76 18 146/67 (93) 98 07/08/17 20:00 97.9 73 17 132/61 (84) 94 07/08/17 16:00 99.1 72 18 150/70 (96) 97 07/08/17 12:00 98.1 75 18 157/75 (102) 98 I/O 07/08/17 07/08/17 07/08/17 07/09/17 07/09/17 07/09/17 07:00 15:00 23:00 07:00 15:00 23:00 Intake Total 240 ml 340 ml 490 ml Balance 240 ml 340 ml 490 ml Intake Oral 240 ml 240 ml 240 ml IV Total 100 ml 250 ml # Voids 1 4 2 2 # Bowel Movements 0 0 0 Result Diagram: 07/06/17 0555 07/08/17 0743 Imaging Last 24 hours Impressions Liver Ultrasound 07/07/17 0000 Signed Impressions: Service Date/Time: Friday, July 07, 2017 07:56 - CONCLUSION: 1. The visualized portions of the pancreas show a mildly dilated duct measuring 3 mm. The common bile duct measures 12 mm which is just out of the range of normal for what is typically seen in patients that are status post cholecystectomy. No choledocholithiasis observed. No intrahepatic ductal dilatation observed. This may simply relate to a capacitance affect from prior cholecystectomy, however, a better visualization of the anatomy is suggested to exclude an obstructing lesion at the pancreatic head level. Either consider MRCP or CT scan with IV contrast. 2. Prior cholecystectomy. 3. Small echogenic right kidney suggesting underlying medical renal disease. Adrián Ward Jr., MD Objective Remarks Awake, alert, NAD LLE: dressing in place without significant drainage. Knee immobilizer. NVI distally Assessment & Plan Assessment and Plan Left total knee arthroplasty infection, postop day 4 status post I&D and polyethylene exchange 1. Weightbearing as tolerated left lower extremity in knee immobilizer. Patient should remain in knee immobilizer without range of motion of the left knee until follow-up. 2. Lovenox for DVT ppx. 3. Recommend ID consultation for antibiotic management as patient does require treatment for several weeks despite negative cultures. Although cultures remain negative, a white blood cell count of greater than 40,000 with 92% neutrophils in the setting of a total knee arthroplasty is consistent with infection and needs to be treated as such even with negative cultures. 4. Dressing changes daily 5. Ok for discharge from ortho standpoint after antibiotics arranged for discharge Mariana Koch MD Jul 09, 2017 08:12
[2017-07-09] MEDS: LACTOBACILLUS ACIDOPHILUS TAB PO SCH ×3 (08:13→18:17)
[2017-07-09] MEDS: VENLAFAXINE HCL XR 75 MG CAP PO SCH (08:13)
[2017-07-09] MEDS: SODIUM CHLORIDE 0.9% FLUSH 10 ML FLUSH IV FLUSH SCH ×2 (08:13→20:48)
[2017-07-09] MEDS: VANCOMYCIN 1,000 MG/NS 250 ML IV SCH ×4 (08:13→20:45)
[2017-07-09] MEDS: FAMOTIDINE 20 MG TAB PO SCH ×2 (08:13→20:48)
[2017-07-09] MEDS: BRIMONIDINE TARTRATE 0.2% OPHT SOLN 5 ML BTL EACH EYE SCH ×2 (08:13→20:48)
[2017-07-09] MEDS: ATENOLOL 25 MG TAB PO SCH (08:14)
[2017-07-09] MEDS: levETIRAcetam 500 MG TAB PO SCH ×2 (08:14→20:48)
[2017-07-09] MEDS: DOCUSATE SODIUM 50 MG/SENNA 8.6 MG TAB PO SCH ×2 (08:17→20:48)
--- NOTE | 2017-07-09 09:00 | HHI.PR ---
Addendum to Inpatient Note Additional Information Pt was seen this am around 845 Full note to follow Ninfa Hernandez MD Jul 09, 2017 09:00
--- NOTE | 2017-07-09 13:37 | HHI.IDPN ---
Subjective Subjective Remarks Delayed entry Pt was seen this am around 845 low grade fever noted co L knee pain Antibiotics vancomycin CFTx Allergies: Coded Allergies: aspirin (Verified Allergy, Intermediate, burning stomach, 07/03/17) Objective . Vital Signs Date Time Temp Pulse Resp B/P (MAP) Pulse Ox O2 Delivery O2 Flow Rate FiO2 07/09/17 04:55 98.6 77 17 166/76 (106) 98 07/08/17 23:20 97.6 76 18 146/67 (93) 98 07/08/17 20:00 97.9 73 17 132/61 (84) 94 07/08/17 16:00 99.1 72 18 150/70 (96) 97 . Laboratory Tests Test 07/08/17 07:43 Creatinine 0.76 MG/DL Estimat Glomerular Filtration Rate 75 ML/MIN Imaging Last Impressions Liver Ultrasound 07/07/17 0000 Signed Impressions: Service Date/Time: Friday, July 07, 2017 07:56 - CONCLUSION: 1. The visualized portions of the pancreas show a mildly dilated duct measuring 3 mm. The common bile duct measures 12 mm which is just out of the range of normal for what is typically seen in patients that are status post cholecystectomy. No choledocholithiasis observed. No intrahepatic ductal dilatation observed. This may simply relate to a capacitance affect from prior cholecystectomy, however, a better visualization of the anatomy is suggested to exclude an obstructing lesion at the pancreatic head level. Either consider MRCP or CT scan with IV contrast. 2. Prior cholecystectomy. 3. Small echogenic right kidney suggesting underlying medical renal disease. Adrián Ward Jr., MD Lower Extremity Ultrasound 07/03/17 0000 Signed Impressions: Service Date/Time: Monday, July 03, 2017 11:26 - CONCLUSION: No DVT in left leg. Hakeem Robles MD Knee X-Ray 07/03/17 0000 Signed Impressions: Service Date/Time: Monday, July 03, 2017 12:16 - CONCLUSION: Joint effusion negative for fracture. Jesus Donovan MD FACR Physical Exam ONSTITUTIONAL/GENERAL: This is an adequately nourished patient, in no apparent distress. TUBES/LINES/DRAINS: SKIN: No jaundice, rashes, or lesions. CARDIOVASCULAR: Regular rate and rhythm without murmurs, gallops, or rubs. RESPIRATORY/CHEST: Symmetric, unlabored respirations. Clear to auscultation. GASTROINTESTINAL: Abdomen soft, non-tender, nondistended. No hepato-splenomegaly , or palpable masses. No guarding. Bowel sounds present. MUSCULOSKELETAL: Extremities without clubbing, cyanosis, or edema. L knee incision clean and dry with minimal drainage on the dressing NEUROLOGICAL: Awake and alert. Non focal PSYCHIATRIC: calm and cooperative Assessment & Plan Remarks Probable cultuer negarive L TKA infection (based on high WBC, cultures are negative, AFB/fungal P) - most likely reason for negartive cultres is sampling error 2/2 low # of submitted samples: 1 instead of 5-6 needed for optimal yeild), other reasons AFB or fascidious nature of culprit organism or least likely abscence of infection at all - only 1 set of operative cultures is availblw whic substantially reduces sensitivity - ESR not sugg of septic knee infx, however can not reliably exclude infx either - no prior abx use prior to pre-surgical aspiration cont vanco IV, Levaquine PO as o/p x 6 weeks - monitor clincially for treatment failure since emprici abx might not target the culprit organism - reculture prior to any abx Rx change - monitor closely for side effects - montor P AFB and fungal clx - will get PICC and fill out OPAT for d/c d/w Ninfa Laureano MD Jul 09, 2017 13:37
--- NOTE | 2017-07-09 14:32 | HHI.PR ---
Subjective Remarks Follow up for suspected left knee arthroplasty infection. Patient is doing well. No fever, chills. Tolerating diet well. Family at bedside. Objective Vitals Vital Signs Date Time Temp Pulse Resp B/P (MAP) Pulse Ox O2 Delivery O2 Flow Rate FiO2 07/09/17 04:55 98.6 77 17 166/76 (106) 98 07/08/17 23:20 97.6 76 18 146/67 (93) 98 07/08/17 20:00 97.9 73 17 132/61 (84) 94 07/08/17 16:00 99.1 72 18 150/70 (96) 97 I/O 07/08/17 07/08/17 07/08/17 07/09/17 07/09/17 07/09/17 07:00 15:00 23:00 07:00 15:00 23:00 Intake Total 240 ml 340 ml 490 ml Balance 240 ml 340 ml 490 ml Intake Oral 240 ml 240 ml 240 ml IV Total 100 ml 250 ml # Voids 1 4 2 2 # Bowel Movements 0 0 0 Result Diagram: 07/06/17 0555 07/08/17 0743 Objective Remarks GENERAL: Alert, NAD. SKIN: Warm and dry. HEAD: Normocephalic. EYES: No scleral icterus. No injection or drainage. NECK: Supple, trachea midline. No JVD or lymphadenopathy. CARDIOVASCULAR: Regular rate and rhythm without murmurs, gallops, or rubs. RESPIRATORY: Breath sounds equal bilaterally. No accessory muscle use. GASTROINTESTINAL: Abdomen soft, non-tender, nondistended. MUSCULOSKELETAL: No cyanosis, or edema. Left knee immobilizer in place. BACK: Nontender without obvious deformity. No CVA tenderness. Procedures 07/05/2017 1. Irrigation and debridement left total knee arthroplasty 2. Revision left total knee arthroplasty with polyethylene exchange. A/P Assessment and Plan 71-year-old female with history of HTN, HLD, osteoarthritis, presents with left knee pain and swelling x2days - Suspected left knee hardware infection - Left total knee arthroplasty with revision in [place]. - Patient was admitted due to two day duration of pain, swelling. - Arthrocentesis showed WBC 41.5K with neutrophil count 97%. - Patient underwent I&D and polyethylene exchange. - Currently patient is on Vancomycin and Ceftriaxone. However, culture has not grown anything. - Op note indicated no purulent fluid - ID following. PICC line and 6 weeks abx planned. - Probable discharge home tomorrow once home health, abx arranged. Transaminitis - LFTs are increased AST, ALT, Alk Phos: 78, 78, 183 --> 181, 142, 280. - Liver US shows no choledocholithiasis, CBD is dilated which could be due to cholecystectomy. - If LFTs continue to trend up, we will consider MRCP as recommended on Liver US. - Hypertension - Continue Amlodipine 10mg Qday, Atenolol 25mg Qday. - Hx of Seizure disorder - currently on Keppra 500mg BID. Full code. Lovenox, Famotidine. Kali Vieyra DO Jul 09, 2017 2:32 pm
[2017-07-09 16:00] VITALS: BP 171/79; PULSE 79; RESP 18; TEMP 98.9; O2SAT 99
[2017-07-09] MEDS: cefTRIAXone INJ 1,000 MG in SODIUM CHLORIDE 0.9% INJ 100 ML IV SCH (18:17)
[2017-07-09 20:00] VITALS: BP 104/73; PULSE 82; RESP 16; TEMP 98.1; O2SAT 97
[2017-07-09] MEDS: ENOXAPARIN SODIUM 40 MG/0.4 ML SYRINGE SQ SCH (20:45)
[2017-07-09] MEDS: TEMAZEPAM 15 MG CAP PO PRN (20:48)
[2017-07-09 23:45] VITALS: BP 162/74; PULSE 75; RESP 16; TEMP 97.9; O2SAT 98
[2017-07-10 03:35] VITALS: BP 151/71; PULSE 81; RESP 16; TEMP 97; O2SAT 99
[2017-07-10 08:00] VITALS: BP 152/92; PULSE 76; RESP 18; TEMP 98.5; O2SAT 98
--- NOTE | 2017-07-10 08:32 | HHI.FF ---
Infusion Therapy Location of Infusion Therapy: Home Health Care IV Infusion Order Patient Information Patient Weight 54 kg Diagnosis: Diagnosis Prosthetic joint infextion Coded Allergies: aspirin (Verified Allergy, Intermediate, burning stomach, 07/03/17) Administer Medication Vancomycin 1.5 grams IV q 24 hours Start Treatment: Jul 10, 2017 Stop Treatment: Aug 17, 2017 Additional Information Venous access: PICC Line Additional Instructions [x] Peripheral flush and dressing changes per protocol [x] Implanted port and central waistline joiner lockstitch: * Implanted port: 10 ml Normal Saline followed by 5 ml Heparin 100 units/ml Heparin flush after each use and monthly to maintain. [] May leave port accessed during therapy. [] May leave peripheral site accessed for duration of therapy. [x] If patient has SOB or respiratory distress, check oxygen saturation. If less than 90% or clinical signs of respiratory distress, administer oxygen at 2 L/min. via nasal cannula and notify physician. [x] Anaphylaxis/Reaction orders: * Stop infusion. * Keep IV line open with saline flush. * Notify physician. * Monitor vital signs every 15 minutes until symptoms resolve. * Check Oxygen saturation; Oxygen at 2 L/min. via nasal cannula if less than 90% or clinical signs of respiratory distress. * Administer diphenhydramine (Benadryl) 25 mg IV STAT, (unless patient has received as pre-med). May repeat once, if necessary. * Solu-Cortef 250 mg IVP over 30-60 seconds, use 100 mg vials for each dissolution. * Epinephrine (1mg/1 ml) 0.3 mg subcutaneously or IVP now with any signs of respiratory distress. * Check with physician for new additional pre-med orders if patient is re- challenged or re-treated. [x] May remove PICC line when treatment complete, after confirming with Physician. [x] If the patient is admitted to the hospital, the ED, or transferred via [facility] , complete transfer form including medication reconciliation order sheet. Laboratory Tests Weekly Labs: CBC w/diff, Creatinine, CRP, LFT's (Hepatic function test), SED Rate, Vancomycin Trough Ninfa La MD Jul 10, 2017 08:32
--- NOTE | 2017-07-10 08:37 | HHI.PR ---
Addendum to Inpatient Note Addendum Reason: Additional Documentation Additional Information Pt OK to be dc from ID standpoint HHC to be arranged prior to dc fotr rj IV abx case was dw with Dr Koch, including limitations of empriric abx tx and side effects Pt needs to be monitord for toxicities ( renal, iman, hepatic, bone marrow) and signs of C.diff colitis as well as allergic reactions for the duration of tx C.diff can occur weeks and months after tx is completed and any diarrhea/ileus should be evaluated in this context Ninfa La MD Jul 10, 2017 08:37
[2017-07-10] MEDS ORDERED: SOLU250I IV PUSH ×2 (08:41→11:23)
[2017-07-10] MEDS ORDERED: VANC10IN IV ×2 (08:41→11:23)
[2017-07-10] MEDS ORDERED: EPIN1INJ21 IV PUSH ×2 (08:41→11:23)
[2017-07-10] MEDS ORDERED: EPIN1INJ21 SQ ×2 (08:41→11:23)
[2017-07-10] MEDS ORDERED: LEVA750T9 PO ×2 (08:41→11:23)
[2017-07-10] MEDS ORDERED: LEVOFLOXACIN 750 MG TAB PO SCH (09:00)
[2017-07-10] MEDS: SODIUM CHLORIDE 0.9% FLUSH 10 ML FLUSH IV FLUSH SCH (09:00)
[2017-07-10] MEDS: oxyCODONE/ACETAMINOPHEN 7.5 MG/325 MG TAB PO PRN ×2 (09:27→16:38)
[2017-07-10] MEDS: VENLAFAXINE HCL XR 75 MG CAP PO SCH (09:27)
[2017-07-10] MEDS: FAMOTIDINE 20 MG TAB PO SCH (09:27)
[2017-07-10] MEDS: LACTOBACILLUS ACIDOPHILUS TAB PO SCH ×2 (09:27→16:39)
[2017-07-10] MEDS: ATENOLOL 25 MG TAB PO SCH (09:27)
[2017-07-10] MEDS: levETIRAcetam 500 MG TAB PO SCH (09:28)
[2017-07-10] MEDS: DOCUSATE SODIUM 50 MG/SENNA 8.6 MG TAB PO SCH (09:28)
[2017-07-10] MEDS: BRIMONIDINE TARTRATE 0.2% OPHT SOLN 5 ML BTL EACH EYE SCH (09:29)
[2017-07-10] MEDS: VANCOMYCIN 1,000 MG/NS 250 ML IV SCH ×2 (09:29)
[2017-07-10] MEDS ORDERED: WALKER WHEELS/F1 MIS (11:20)
[2017-07-10] MEDS ORDERED: OXYC1TAB35 PO (11:21)
--- NOTE | 2017-07-10 11:24 | HHI.DS ---
Discharge Summary Admission Date Jul 07, 2017 at 10:10 am Discharge Date: Jul 10, 2017 Admitting Diagnosis Possible septic joint (1) Septic arthritis ICD Code: M00.9 - Pyogenic arthritis, unspecified Diagnosis: Principal Status: Acute Procedures 07/05/2017 1. Irrigation and debridement left total knee arthroplasty 2. Revision left total knee arthroplasty with polyethylene exchange. Brief History - From Admission pain and swelling in left knee started yesterday no fever had warmth over it no falls had chronic pain on left knee arthritis left knee replacement 2x - last time 3 yrs ago Reports of prior history of recurrent left knee swelling on almost daily basis. not diabetic no cardiovascular issues in ER was tapped started on iv vanco and rocephin had diarrhea monday and monday- whole day long vomited one time on monday no black or red color stool no blood in urine CBC/BMP: 07/06/17 0555 07/10/17 0500 Significant Findings Laboratory Tests Test 07/07/17 18:10 07/08/17 07:43 07/08/17 18:58 07/10/17 05:00 Vancomycin Level Trough 11.3 MCG/ML (5.0-10.0) Estimat Glomerular Filtration Rate 75 ML/MIN (>89) 85 ML/MIN (>89) Imaging Last Impressions Liver Ultrasound 07/07/17 0000 Signed Impressions: Service Date/Time: Friday, July 07, 2017 07:56 - CONCLUSION: 1. The visualized portions of the pancreas show a mildly dilated duct measuring 3 mm. The common bile duct measures 12 mm which is just out of the range of normal for what is typically seen in patients that are status post cholecystectomy. No choledocholithiasis observed. No intrahepatic ductal dilatation observed. This may simply relate to a capacitance affect from prior cholecystectomy, however, a better visualization of the anatomy is suggested to exclude an obstructing lesion at the pancreatic head level. Either consider MRCP or CT scan with IV contrast. 2. Prior cholecystectomy. 3. Small echogenic right kidney suggesting underlying medical renal disease. Adrián Ward Jr., MD Lower Extremity Ultrasound 07/03/17 0000 Signed Impressions: Service Date/Time: Monday, July 03, 2017 11:26 - CONCLUSION: No DVT in left leg. Hakeem Robles MD Knee X-Ray 07/03/17 0000 Signed Impressions: Service Date/Time: Monday, July 03, 2017 12:16 - CONCLUSION: Joint effusion negative for fracture. Jesus Donovan MD FACR PE at Discharge GENERAL: Alert, NAD. SKIN: Warm and dry. HEAD: Normocephalic. EYES: No scleral icterus. No injection or drainage. NECK: Supple, trachea midline. No JVD or lymphadenopathy. CARDIOVASCULAR: Regular rate and rhythm without murmurs, gallops, or rubs. RESPIRATORY: Breath sounds equal bilaterally. No accessory muscle use. GASTROINTESTINAL: Abdomen soft, non-tender, nondistended. MUSCULOSKELETAL: No cyanosis, or edema. Left knee immobilizer in place. BACK: Nontender without obvious deformity. No CVA tenderness. Pt update on day of discharge Patient is doing well. No fever, chills. Wants to go home. Hospital Course 71-year-old female with history of HTN, HLD, osteoarthritis, presents with left knee pain and swelling x2days - Suspected left knee hardware infection - Left total knee arthroplasty with revision in [place]. - Patient was admitted due to two day duration of pain, swelling. - Arthrocentesis showed WBC 41.5K with neutrophil count 97%. - Patient underwent I&D and polyethylene exchange. - Currently patient is on Vancomycin and Ceftriaxone. However, culture has not grown anything. - This is likely a culture negative infection. Thus, the decision was made to continue Abx - ID following. PICC line and 6 weeks abx planned. ID recommends Levaquin PO and IV Vancomycin. Transaminitis - LFTs are increased AST, ALT, Alk Phos: 78, 78, 183 --> 181, 142, 280. - Liver US shows no choledocholithiasis, CBD is dilated which could be due to cholecystectomy. - If LFTs continue to trend up, we will consider MRCP as recommended on Liver US. - Hypertension - Continue Amlodipine 10mg Qday, Atenolol 25mg Qday. - Hx of Seizure disorder - currently on Keppra 500mg BID. Full code. Lovenox, Famotidine. Pt Condition on Discharge: Good Discharge Disposition: Disch w/ Home Health Serv Discharge Time: > 30 minutes Discharge Instructions DIET: Follow Instructions for: As Tolerated, No Restrictions Activities you can perform: Regular-No Restrictions Follow up Referrals: PCP Follow-up - 1 Week SNF[facility]/ with [facility] New Medications: Epinephrine Inj (Epinephrine Inj) 1 Mg/Ml (1 Ml) Inj 0.3 MG IV PUSH ONCE PRN for ALLERGIC REACTION, #1 VIAL Epinephrine Inj (Epinephrine Inj) 1 Mg/Ml (1 Ml) Inj 0.3 MG SQ ONCE PRN for ALLERGIC REACTION, #1 VIAL Give with any signs of respiratory distress. Hydrocortisone Inj (Solu-Cortef Inj) 250 Mg/2 Ml Inj 250 MG IV PUSH ONCE PRN for ALLERGIC REACTION, #1 VIAL 0 Refills Give over 30-60 seconds. Levofloxacin (Levaquin) 750 Mg Tablet 750 MG PO DAILY for Infection for 36 Days, #36 TAB 0 Refills Vancomycin Inj (Vancomycin Inj) 10 Gram Inj 1500 MG IV DAILY for Infection for 36 Days, VIAL Walker with Front Wheels (Walker with Front Wheels) 1 Mis Mis EA .ROUTE DIRECTED, #1 0 Refills Oxycodone-Acetaminophen (Oxycodone-Acetaminophen) 7.5-325 mg Tab 1 TAB PO Q6H PRN for PAIN SCALE 5 TO 10, #20 TAB Continued Medications: Amlodipine (Amlodipine) 10 Mg Tab 10 MG PO DAILY for Blood Pressure Management, #30 TAB 0 Refills Atenolol (Atenolol) 25 Mg Tab 25 MG PO DAILY for Blood Pressure Management, #30 TAB Brimonidine Opth Drops (Brimonidine Opth Drops) 0.2% Soln 1 DROP EACH EYE BID for Intraocular pressure, #1 BOTTLE 0 Refills Latanoprost Opth Drops (Latanoprost Opth Drops) 0.005% Drops 1 DROP EACH EYE HS for Glaucoma, #2.5 ML 0 Refills Refrigerate until opened. Levetiracetam (Levetiracetam) 500 Mg Tab 500 MG PO BID for Control Seizures, #60 TAB 0 Refills Meclizine (Meclizine) 25 Mg Tab 25 MG PO DIRECTED PRN for VERTIGO, TAB 0 Refills Ranitidine (Ranitidine 75) 75 Mg Tab 150 MG PO BID for Heartburn, TAB 0 Refills Take 30 to 60 minutes before eating food or drinking beverages that cause heartburn. Temazepam (Temazepam) 15 Mg Cap 15 MG PO HS PRN for INSOMNIA, #30 CAP 0 Refills Venlafaxine ER 24 HR (Venlafaxine ER 24 HR) 150 Mg Cap 150 MG PO DAILY, #30 CAP 0 Refills Kali Vieyra DO Jul 10, 2017 11:24
--- NOTE | 2017-07-10 11:26 | HHI.FF ---
Face to Face Verification Diagnosis: (1) Septic arthritis Physical Therapy Order: Evaluate and Treat, Improve ambulation, Strength and gait training Home Health Nursing Order: Medical education Signs/symptoms of disease process Medication education-adverse effect Wound care and dressing changes Nursing assessment with vital signs IV medication administration Instructions: Vancomycin 1.5 grams IV q 24 hours Start Treatment: Jul 10, 2017 Stop Treatment: Aug 17, 2017 Patient will also continue the following PO antibiotics: Levofloxacin (Levaquin) 750 Mg Tablet 750 MG PO DAILY for Infection for 36 Days, #36 TAB 0 Refills I have seen patient Hattie Kent on 07/10/17. My clinical findings support the need for the requested home health care services because: Ltd mobility - disease progression Deconditioned w/ increased weakness Med compliance is questionable Limited ability to care for self Need for psychosocial assistance Impaired cognition/judgement High risk of falls Infection w/ risk of complications I certify that my clinical findings support that this patient is homebound because: Post-op weakness Unsteady gait/balance Unsafe to leave home unassisted Need for psychosocial assistance [id number] bed/chair Unable to use public transportation Kali Vieyra DO Jul 10, 2017 11:26 am
[2017-07-10 12:00] VITALS: BP 145/90; PULSE 80; RESP 17; TEMP 98.1; O2SAT 100
[2017-07-10] MEDS ORDERED: SODIUM CHLORIDE 0.9% FLUSH 10 ML FLUSH IV FLUSH PRN (14:15)
--- NOTE | 2017-07-10 14:45 | RADRPT ---
EXAM DATE/TIME: 07/10/2017 15:07 [facility] COMPARISON: No previous studies available for comparison. INDICATIONS : PICC placement. MEDICAL HISTORY : Hypercholesterolemia. Hypertension Glaucoma. Seizures. Arthritis. Anemia. Vertigo. SURGICAL HISTORY : Cholecystectomy. Lobectomy. ENCOUNTER: Initial ACUITY: 1 day PAIN SCORE: 0/10 LOCATION: Bilateral chest FINDINGS: A single view of the chest demonstrates the lungs to be symmetrically aerated with minimal atelectasi s above the left hemidiaphragm. Stent graft projects over the mid and distal thoracic aorta. Right up per extremity PICC line with the tip projecting over the central venous system. Osseous structures ar e intact. Rounded air density projecting over the heart is characteristic of a moderately large hiata l hernia. Heart size is upper limits of normal. CONCLUSION: 1. Right upper extremity PICC line with the tip projecting over the central venous system. 2. Hiatal hernia. 3. Left basilar atelectasis/scarring. 4. Stent graft projecting over the mid and lower thoracic aorta. Johnny Toth MD on July 10, 2017 at 14:42 Board Certified Radiologist. This report was verified electronically.
[2017-07-11] MEDS ORDERED: VANCOMYCIN 1,500 MG/NS 500 ML IV SCH ×2 (08:00)
[2017-07-11] MEDS ORDERED: SODIUM CHLORIDE 0.9% FLUSH 10 ML FLUSH IV FLUSH SCH (09:00)
== END 2017-07-10 17:49 | disposition home health service (06) | DRG 467 ==
LOC: NEPE 08:55 → INTOOBSV 18:25 → NEDA 18:25 → NEPGCP 20:05 → N06A 07-05 21:58 → OBSVTOIN 07-07 10:10
PROVIDERS: ADMIT Hospitalist; ATTEND Hospitalist
PROC: 0SPD09Z Removal of Liner from Left Knee Joint, Open Approach (ICD-10-PCS; principal; 2017-07-07)
PROC: 0SRD0J9 Replacement of Left Knee Joint with Synthetic Substitute, Cemented, Open Approach (ICD-10-PCS; 2017-07-07)
PROC: 0SUW09Z Supplement Left Knee Joint, Tibial Surface with Liner, Open Approach (ICD-10-PCS; 2017-07-07)
DX: T84.54XA Infection and inflammatory reaction due to internal left knee prosthesis, initial encounter (principal); M00.9 Pyogenic arthritis, unspecified; G40.909 Epilepsy, unspecified, not intractable, without status epilepticus; I10 Essential (primary) hypertension; M17.12 Unilateral primary osteoarthritis, left knee; E78.5 Hyperlipidemia, unspecified; G89.29 Other chronic pain; Y83.1 Surgical operation with implant of artificial internal device as the cause of abnormal reaction of the patient, or of later complication, without mention of misadventure at the time of the procedure
CPT/HCPCS: 20610; 36569; 71010; 73564; 76705; 76937; 80053; 80074; 80202; 82550; 82565; 85025; 85610; 85652; 85730; 87015; 87070; 87102; 87116; 87205; 87206; 89051; 89060; 93005; 93971; 94150; 96365; 96366; 96372; 96375; 96376; G0378; G8987-GP; G8988-GP; J0696; J1580; J1650; J1885; J2270; J3260; J3370; J7050; L1830

== ENCOUNTER 2017-08-06 15:49 | Emergency (ER) | payer OTHER ==
[~2017-08-06] VITALS: Ht 144.8 cm; Wt 54.5 kg
[~2017-08-06 15:49] MED LIST: AMLO10TA2 PO; ATEN25TA PO; BRIM0.2S4 EACH EYE; EPIN1INJ21 IV PUSH; EPIN1INJ21 SQ; LATA0.002 EACH EYE; LEVA750T9 PO; LEVE500T8 PO; MECL-62 PO; OXYC1TAB35 PO; RANI1TAB5 PO; SOLU250I IV PUSH; TEMA15CA PO; VANC10IN IV; VENL150C39 PO; WALKER WHEELS/F1 MIS
[2017-08-06 15:50] VITALS: BP 130/81; PULSE 73; RESP 16; TEMP 99; O2SAT 97
--- NOTE | 2017-08-06 16:58 | PD ---
HPI Chief Complaint: Tuber Machine Cutter Problem Time Seen by Provider: 16:56 Travel History International Travel<30 days: No Contact w/Intl Traveler<30days: No Traveled to known affect area: No History of Present Illness HPI 71-year-old female presents to the emergency department for evaluation of her PICC line to her right upper extremity. She is getting vancomycin and Rocephin for a septic knee. However, she received her vancomycin and Rocephin today and then her caregiver had trouble flushing the PICC line. Apparently, home health nurse also trouble flushing the PICC line so they referred her to the emergency department. She is no other complaints at this time. She is Danish-speaking and translation is done through her caregiver at bedside. The patient does request that her caregiver do the translation. PFSH Past Medical History Anemia: Yes Arthritis: Yes (and oa) Depression: Yes High Cholesterol: Yes Hypertension: Yes Seizures: Yes Past Surgical History Cholecystectomy: Yes Hysterectomy: Yes Other Surgery: Yes (piece of L Lower Lung lobe removed) Social History Alcohol Use: No Tobacco Use: No Substance Use: No Allergies-Medications (Allergen,Severity, Reaction): Coded Allergies: aspirin (Verified Allergy, Intermediate, burning stomach, 08/06/17) Reported Meds & Prescriptions Reported Meds & Active Scripts Active Epinephrine Inj 1 Mg/Ml (1 Ml) Inj 0.3 Mg SQ ONCE PRN Give with any signs of respiratory distress. Epinephrine Inj 1 Mg/Ml (1 Ml) Inj 0.3 Mg IV PUSH ONCE PRN Solu-Cortef Inj (Hydrocortisone Sodium Succinate) 250 Mg/2 Ml Inj 250 Mg IV PUSH ONCE PRN Give over 30-60 seconds. Vancomycin Inj (Vancomycin HCl) 10 Gram Inj 1,500 Mg IV DAILY 36 Days Levaquin (Levofloxacin) 750 Mg Tablet 750 Mg PO DAILY 36 Days Oxycodone-Acetaminophen 7.5-325 mg Tab 1 Tab PO Q6H PRN Walker with Front Wheels (Device) 1 Mis Mis Ea .ROUTE DIRECTED Reported Latanoprost Opth Drops (Latanoprost) 0.005% Drops 1 Drop EACH EYE HS Refrigerate until opened. Brimonidine Opth Drops (Brimonidine Tartrate) 0.2% Soln 1 Drop EACH EYE BID Temazepam 15 Mg Cap 15 Mg PO HS PRN Amlodipine (Amlodipine Besylate) 10 Mg Tab 10 Mg PO DAILY Venlafaxine ER 24 HR (Venlafaxine HCl) 150 Mg Cap 150 Mg PO DAILY Meclizine (Meclizine HCl) 25 Mg Tab 25 Mg PO DIRECTED PRN Atenolol 25 Mg Tab 25 Mg PO DAILY Levetiracetam 500 Mg Tab 500 Mg PO BID Ranitidine 75 (Ranitidine HCl) 75 Mg Tab 150 Mg PO BID Take 30 to 60 minutes before eating food or drinking beverages that cause heartburn. Review of Systems Except as stated in HPI: all other systems reviewed are Neg Physical Exam Narrative GENERAL: Well-nourished, well-developed female patient, ambulatory. Afebrile. SKIN: Focused skin assessment warm/dry. Patient has PICC line to the right upper extremity HEAD: Normocephalic. Atraumatic. EYES: No scleral icterus. No injection or drainage. NECK: Supple, trachea midline. No JVD or lymphadenopathy. CARDIOVASCULAR: Regular rate and rhythm without murmurs, gallops, or rubs. RESPIRATORY: Breath sounds equal bilaterally. No accessory muscle use. Lungs sounds are clear to auscultation GASTROINTESTINAL: Abdomen soft, non-tender, nondistended. MUSCULOSKELETAL: No cyanosis, or edema. BACK: Nontender without obvious deformity. No CVA tenderness. Data Data Last Documented VS Vital Signs Date Time Temp Pulse Resp B/P (MAP) Pulse Ox O2 Delivery O2 Flow Rate FiO2 08/06/17 16:53 Room Air 08/06/17 15:50 99.0 73 16 130/81 (97) 97 Orders Orders Cathflo Activase Inj (Cathflo Activase I (08/06/17 17:00) Chest, Single Ap (08/06/17 ) MDM Medical Decision Making Medical Screen Exam Complete: Yes Emergency Medical Condition: Yes Medical Record Reviewed: Yes Interpretation(s) Last Impressions Chest X-Ray 08/06/17 0000 Signed Impressions: Service Date/Time: Sunday, August 06, 2017 17:24 - CONCLUSION: PICC line as above. Billy De La Vega MD Differential Diagnosis PICC line obstruction vs. malpositioned PICC line vs. medical clearance Narrative Course 71-year-old female presents to the emergency department due to inability to flush her PICC line. The nurse was able to flush the PICC line with saline, but was very sluggish. Vascular access team was consulted who suggested chest x -ray for positioning. Chest x-ray is ordered and pending. Chest x-ray shows a right-sided PICC line is noted in the distal tip overlies the expected location of the SVC/right atrial junction. Endovascular stent graft of the thoracic aorta is noted. Hiatal hernia is present. Scarring at the left lung base. Cathflo is given. The PICC line is still very hard to flush. I talked with the patient's caregiver. I instructed her to call Dr. La, infectious disease, who prescribes her antibiotics first thing in the morning and tell her what is going on to get new access for antibiotics. She states that she will do this. I'll give her her name and number to call. I discussed patient's case with my attending physician, Dr. Motley, who agrees with plan and disposition. Diagnosis Primary Impression: Occluded PICC line Qualified Codes: T82.898A - Other specified complication of vascular prosthetic devices, implants and grafts, initial encounter Referrals: Ninfa La MD 1 day Patient Instructions: General Instructions, Peripherally Inserted Central Catheters and Midline Catheters (ED) Additional Instructions: Call Dr. La first thing in the morning and let her know the PICC line isn' t working. Return to the emergency department for any acute, worsening of symptoms. Med/Other Pt SpecificInfo: No Change to Meds Disposition: 01 DISCHARGE HOME Condition: Stable Guillermina Alcocer JAYNE Aug 06, 2017 16:58
[2017-08-06] MEDS ORDERED: ALTEPLASE RECOMBINANT 2 MG VIAL INTRACATH ONE (17:00)
--- NOTE | 2017-08-06 18:02 | RADRPT ---
EXAM DATE/TIME: 08/06/2017 17:24 [facility] COMPARISON: CHEST SINGLE AP, July 10, 2017, 15:07. INDICATIONS : Evaluate PICC line placement, unable to flush line MEDICAL HISTORY : Hypercholesterolemia. Hypertension Glaucoma. Seizures. Arthritis, Anemia. Vertigo. SURGICAL HISTORY : Cholecystectomy. Lobectomy ENCOUNTER: Initial ACUITY: 1 day PAIN SCORE: 0/10 LOCATION: chest FINDINGS: A right-sided PICC line is noted in the distal tip overlies the expected location of the SVC/right at rial junction. Endovascular stent graft of the thoracic aorta is noted. Hiatal hernia is present. Sca rring at the left lung base. CONCLUSION: PICC line as above. Billy De La Vega MD on August 06, 2017 at 18:00 Board Certified Radiologist. This report was verified electronically.
== END 2017-08-06 19:23 | disposition home or self-care (01) ==
LOC: NEPD 15:49
DX: T82.898A Other specified complication of vascular prosthetic devices, implants and grafts, initial encounter (principal); K44.9 Diaphragmatic hernia without obstruction or gangrene; D64.9 Anemia, unspecified; M19.90 Unspecified osteoarthritis, unspecified site; F32.9 Major depressive disorder, single episode, unspecified; E78.00 Pure hypercholesterolemia, unspecified; R56.9 Unspecified convulsions; Z88.6 Allergy status to analgesic agent; Z79.899 Other long term (current) drug therapy
CPT/HCPCS: 36593; 71010; 99283; J2997

== ENCOUNTER 2017-08-07 14:11 | Day surgery (SDC) | payer OTHER | END 2017-08-07 15:04 | disposition home or self-care (01) | LOC: HROP 14:11 → HRIP 14:14 → HROP 15:04 | PROVIDERS: ATTEND Internal Medicine Infectious Disease | DX: Z45.2 Encounter for adjustment and management of vascular access device (principal) | CPT/HCPCS: J1642 ==